=== PATIENT | male | born 1970 | race Caucasian/White ===

== ENCOUNTER 2018-07-24 13:18 | Emergency (ER) | payer SELFPAY ==
--- NOTE | 2018-07-24 13:49 | ERPHSYRPT ---
- History of Present Illness Time Seen by Provider: 07/24/18 13:41 Source: patient Exam Limitations: no limitations Patient Subjective Stated Complaint: pt here for pain to right ankle and knee since saturday evening since twisiting leg in pot hole, pt is a owner operator tanker truck driver and drove to [place] Triage Nursing Assessment: pt alert, arrived per [facility] leg pale, slightly blue in color, once leg was up on pillow pts lower leg became pink, has pedal pulse heard by doppler, right lower leg, with redness, swelling, swelling radiates to fight foot Physician History: 48-year-old white male complains of pain edema, erythema right lower extremity symptoms for 2 days. According to the patient he stepped into a hole 2 days ago twisting his right ankle he states he had right ankle pain he states he proceeded to drive to [place] and back he states he is having pain and edema to his right lower leg and ankle He has a moderate edema to his right foot right ankle He has erythema to the distal right leg and right foot. Area is not hot. Past medical history is negative Past surgical history dislocated left ankle in the past and fracture right leg in the past. Social history positive for occasional alcohol, positive occasional tobacco denies illicit drug use. Method of Injury: twisted (twisted right ankle 2 days ago, then drove to [place] and back) Occurred: days ago (2) Quality: aching Severity of Pain-Max: moderate Severity of Pain-Current: moderate Lower Extremities Pain: leg: right, foot: right, ankle: right Modifying Factors: Improves With: movement Associated Symptoms: unable to bear weight Allergies/Adverse Reactions: No Known Drug Allergies Allergy (Unverified 07/24/18 13:41) Hx Influenza Vaccination/Date Given: No Immunizations Up to Date: Yes - Review of Systems Constitutional: No Fever, No Chills Eyes: No Symptoms Ears, Nose, & Throat: No Symptoms Respiratory: No Cough, No Dyspnea Cardiac: No Chest Pain, No Edema, No Syncope Abdominal/Gastrointestinal: No Abdominal Pain, No Nausea, No Vomiting, No Diarrhea Genitourinary Symptoms: No Dysuria Musculoskeletal: Other (pain and edema, right lower leg foot and ankle) Skin: Other (Erythema to right foot and ankle) Neurological: No Dizziness, No Focal Weakness, No Sensory Changes Psychological: No Symptoms Endocrine: No Symptoms All Other Systems: Reviewed and Negative - Past Medical History Pertinent Past Medical History: No - Past Surgical History Past Surgical History: Yes Other Surgical History: left ankle - Social History Smoking Status: Current some day smoker Exposure to second hand smoke: Yes Drug Use: none Patient Lives Alone: No - Nursing Vital Signs Nursing Vital Signs: Initial Vital Signs Temperature 7.8 F 07/24/18 13:25 Pulse Rate 106 H 07/24/18 13:25 Respiratory Rate 18 07/24/18 13:25 Blood Pressure 124/92 07/24/18 13:25 O2 Sat by Pulse Oximetry 99 07/24/18 13:25 Pain Scale Pain Intensity 9 - Physical Exam General Appearance: moderate distress Eyes, Ears, Nose, Throat Exam: moist mucous membranes Neck Exam: non-tender, supple Cardiovascular/Respiratory Exam: chest non-tender, normal breath sounds, regular rate/rhythm, no respiratory distress Gastrointestinal/Abdominal Exam: non-tender, guarding Hips Exam: bilateral: non-tender, normal inspection, normal range of motion, no evidence of injury Legs Exam: right leg: other (left lower leg distally erythematous not hot edematous), left leg: non-tender, normal inspection, normal range of motion Knees Exam: bilateral knee: non-tender, normal inspection, normal range of motion, no evidence of injury Ankle Exam: right ankle: other (painwith movement and palpation right ankle right ankle edema), left ankle: non-tender, normal inspection, normal range of motion Foot Exam: right foot: other (Moderate edema right foot , tender with palpation proximal right foot), left foot: non-tender, normal inspection, normal range of motion, no evidence of injury Neuro/Tendon Exam: normal sensation, normal motor functions Mental Status Exam: alert, oriented x 3, cooperative Skin Exam: normal color, warm, dry SpO2 Interpretation: normal (99%) SpO2: 99 Oxygen Delivery: Room Air - Radiology Exams Right Foot X-ray Interpretation: Discussed w/ radiologist (x-ray right foot: Mild diffuse soft tissue swelling and tiny plantar heel spur. No other bony, articular, or soft tissue abnormalities.) Right Ankle X-ray Interpretation: Discussed w/ radiologist (x-ray right ankle: Soft tissue swelling and tiny plantar heel spur. No other bony, articular, or soft tissue abnormalities) Ordered Tests: Active Orders 24 hr Category Date Time Status Crutches STAT Care 07/24/18 15:08 Active IV Insertion STAT Care 07/24/18 13:39 Active ANKLE (3 VIEWS) Stat Exams 07/24/18 13:40 Completed FOOT (MINIMUM 3 VIEWS) Stat Exams 07/24/18 13:52 Completed BLOOD CULTURE Stat Lab 07/24/18 14:00 Received CBC W DIFF Stat Lab 07/24/18 14:20 Completed CMP Stat Lab 07/24/18 14:20 Completed D-DIMER QUANTITATION Stat Lab 07/24/18 14:20 Completed PROTIME WITH INR Stat Lab 07/24/18 14:20 Completed PTT Stat Lab 07/24/18 14:20 Completed Medication Summary Generic Name Dose Route Start Last Admin Trade Name Freq PRN Reason Stop Dose Admin Ampicillin Sodium/Sulbactam Sodium 3 gm in 100 mls @ 200 mls/hr 07/24/18 15: 08 Unasyn 3gm / Nacl 100ml IV 07/24/18 15:37 STAT STA Discontinued Medications Generic Name Dose Route Start Last Admin Trade Name Freq PRN Reason Stop Dose Admin Ketorolac Tromethamine 30 mg 07/24/18 13:53 07/24/18 13:59 Toradol 30 Mg Injection IV 07/24/18 13:54 30 mg STAT ONE Administration Ketorolac Tromethamine Confirm 07/24/18 13:59 Toradol 30 Mg Injection Administered 07/24/18 14:00 Dose 30 mg .ROUTE .STK-MED ONE Lab/Rad Data: Laboratory Result Diagrams 07/24/18 14:20 07/24/18 14:20 Laboratory Results 07/24/18 07/24/18 07/24/18 Range/Units 14:20 14:20 14:20 WBC 13.7 H (4.0-10.5) K/mm3 RBC 5.51 (4.1-5.6) M/mm3 Hgb 15.9 (12.5-18.0) gm/dl Hct 45.6 (42-50) % MCV 82.8 (78-100) fl MCH 28.9 (26-32) pg MCHC 34.9 (32-36) g/dl RDW 14.6 H (11.5-14.0) % Plt Count 168 (150-450) K/mm3 MPV 10.1 H (6-9.5) fl Gran % 82.0 H (36.0-66.0) % Eos # (Auto) 0 (0-0.5) Absolute Lymphs (auto) 1.51 (1.0-4.6) Absolute Monos (auto) 0.94 (0.0-1.3) Lymphocytes % 11.0 L (24.0-44.0) % Monocytes % 6.9 (0.0-12.0) % Eosinophils % 0.0 (0.00-5.0) % Basophils % 0.1 (0.0-0.4) % Absolute Granulocytes 11.23 H (1.4-6.9) Basophils # 0.02 (0-0.4) PT 16.8 H (8.83-12.87) SECONDS INR 1.44 (0.8-3.0) APTT 28.4 (24.1-36.1) SECONDS D-Dimer 293 (215-500) ng/mL Sodium 134 L (137-145) mmol/L Potassium 4.0 (3.5-5.1) mmol/L Chloride 99 (98-107) mmol/L Carbon Dioxide 23 (22-30) mmol/L Anion Gap 16.1 H (5-15) MEQ/L BUN 18 (9-20) mg/dL Creatinine 0.91 (0.66-1.25) mg/dL Estimated GFR > 60.0 ML/MIN Glucose 245 H (74-106) mg/dL Calcium 9.1 (8.4-10.2) mg/dL Total Bilirubin 1.70 H (0.2-1.3) mg/dL AST 20 (17-59) U/L ALT 26 (0-50) U/L Alkaline Phosphatase 64 (38-126) U/L Serum Total Protein 7.8 (6.3-8.2) g/dL Albumin 4.8 (3.5-5.0) g/dL - Progress Progress: improved Progress Note: 07/24/18 15:09 This is a 48-year-old white male arrives with complaint of pain and swelling in his right distal leg foot and ankle symptoms for 2 days patient states that he stepped in a hole twisted his right ankle 2 days ago he states he drove the [place] and back he arrives with marked edema and tenderness in the erythema to the right lower extremity. Patient did have palpable pulses dorsal pedal posterior tibial 2 over 4 this was comfortable by the patient's nurse with the Doppler. Patient did have tenderness with palpation to the right distal leg foot and ankle. X-ray of the right ankle and foot are remarkable for soft tissue swelling no fractures or subluxation Patient with a CBC showing white count 13.7 hemoglobin 15.9 hematocrit 45.6 platelets are 168 Patient's chemistry show a sodium of 134 potassium 4.0 chloride 99 bicarbonate 23 BUN 18 creatinine 0.91 glucose 245 Patient's d-dimer is within normal limits. Patient did have his right leg elevated while in the emergency room edema is much improved. He still has some tenderness after receiving Toradol 30 mg IV but pain is improved as well. He does have some erythema of the right foot which again is markedly improved The appearance of the right distal leg is erythematous but does not appear to be cellulitis. Right foot has mild erythema distally Will go ahead and cover the patient with Unasyn 3.[address] patient on Augmentin. Will go ahead and write for [place] for pain. Will avoid placing Beto wrap on patient's right lower extremity her ankle at this time the appearance of his right lower leg appears to possibly be skin changes secondary from having a tight dressing to the area. He does have good capillary refill to the toes and sensation is intact to the entire right foot. Will place patient on crutches. - Departure Time of Disposition: 15:14 Departure Disposition: Home Clinical Impression: Edema of right lower extremity Right ankle sprain Qualifiers: Encounter type: initial encounter Involved ligament of ankle: unspecified ligament Qualified Code(s): S93.401A - Sprain of unspecified ligament of right ankle, initial encounter Condition: Fair Critical Care Time: No Referrals: SARAH RO DO [Primary Care Provider] - Additional Instructions: Return home. Crutches no weight bearing right lower extremity. Elevate right lower extremity 24-48 hours. cold packs right lower extremity. Follow-up with your family doctor call tomorrow for an appointment. Augmentin as prescribed. Glasco as prescribed. Return for acute distress or for severe symptoms. Prescriptions: Amox Tr/Potass Clav. 500 mg [Augmentin 500-125 Tablet] 500 mg PO TID #30 tablet Hydrocodone/Acetaminophen [[place] 5-325 Tablet] 1 tab PO Q4-6HPRN PRN #15 tablet MDD 6 tablets PRN Reason: Pain
[2018-07-24] MEDS: TORAdol 30 mg Injection IV ONE (13:59)
[2018-07-24] MEDS ORDERED: TORAdol 30 mg Injection ONE (13:59)
--- NOTE | 2018-07-24 14:21 | XRAY ---
Indication: Pain, swelling, and erythema following injury 2 days ago. Comparison: None 3 nonweightbearing views of the right foot demonstrates mild diffuse soft tissue swelling and tiny plantar heel spur. No other bony, articular, or soft tissue abnormalities.
--- NOTE | 2018-07-24 14:24 | XRAY ---
Indication: Pain, swelling, and erythema following injury 2 days ago. Comparison: None 3 views of the right ankle demonstrates soft tissue swelling and tiny plantar heel spur. No other bony, articular, or soft tissue abnormalities.
[2018-07-24 14:27] LABS: BASOPHIL % 0.1 % (0.0-0.4); Basophil (Absolute #) 0.02 (0-0.4); Eosinophil (Absolute #) 0 (0-0.5); Granulocyte Absolute (ANC) 11.23 (1.4-6.9); Hematocrit 45.6 % (42-50); Hemoglobin 15.9 gm/dl (12.5-18.0); Lymphocyte (Absolute #) 1.51 (1.0-4.6); Mean Cell Volume 82.8 fl (78-100); Mean Corpuscular Hemoglobin 28.9 pg (26-32); Mean Corpuscular Hgb Concent. 34.9 g/dl (32-36); Mean Platelet Volume 10.1 fl (6-9.5); Monocyte (Absolute #) 0.94 (0.0-1.3); Monocytes % 6.9 % (0.0-12.0); Platelet Count 168 K/mm3 (150-450); Red Blood Count 5.51 M/mm3 (4.1-5.6); Red Cell Distribution Width 14.6 % (11.5-14.0); White Blood Count 13.7 K/mm3 (4.0-10.5)
[2018-07-24 14:44] LABS: ALBUMIN 4.8 g/dL (3.5-5.0); ALKALINE PHOSPHATASE 64 U/L (38-126); ANION GAP 16.1 MEQ/L (5-15); BLOOD UREA NITROGEN 18 mg/dL (9-20); CHLORIDE 99 mmol/L (98-107); Calcium 9.1 mg/dL (8.4-10.2); Carbon Dioxide 23 mmol/L (22-30); Creatinine 1 0.91 mg/dL (0.66-1.25); Glucose 245 mg/dL (74-106); SGOT/AST 20 U/L (17-59); SGPT/ALT 26 U/L (0-50); SODIUM 134 mmol/L (137-145); Total Protein 7.8 g/dL (6.3-8.2)
[2018-07-24 14:57] LABS: INR 1.44 (0.8-3.0)
[2018-07-24 15:00] LABS: PTT 28.4 SECONDS (24.1-36.1)
[2018-07-24] MEDS ORDERED: Unasyn 3GM / NaCl 100ML 3 GM/100 ML IVPB ONE (15:26)
[2018-07-24 15:47] VITALS: BP 105/62; PULSE 73; O2SAT 98
[2018-07-24] MEDS: Unasyn 3GM / NaCl 100ML 3 GM/100 ML IVPB IV STA (15:49)
== END 2018-07-24 16:07 | disposition home or self-care (01) ==
LOC: ED 13:18
DX: R60.0 Localized edema (principal); S93.401A Sprain of unspecified ligament of right ankle, initial encounter; X50.1XXA Overexertion from prolonged static or awkward postures, initial encounter; Y93.01 Activity, walking, marching and hiking; M25.571 Pain in right ankle and joints of right foot; M25.561 Pain in right knee; M79.661 Pain in right lower leg; M79.89 Other specified soft tissue disorders
CPT/HCPCS: 36000; 36415; 73610; 73630; 80053; 85025; 85379; 85610; 85730; 87040; 87077; 96365; 96374; 96375; 99284; J0295; J1885

== ENCOUNTER 2020-08-01 18:31 | Emergency (ER) | payer OTHER ==
[2020-08-01] MEDS ORDERED: XYLOCAINE 2% HCL 20 ML MDV ONE (18:49)
--- NOTE | 2020-08-01 19:07 | ERPHSYRPT ---
- History of Present Illness Source: patient Exam Limitations: no limitations Patient Subjective Stated Complaint: Pt states "I noticed like a marble under my skin on saturday and now it is much bigger and hurts allot." Triage Nursing Assessment: Pt presented alert and oriented X 3, skin pwd. Pt ambulates with a limp, able to speak in clear full sentences pt in no apparent respiratory distress. Pt has a 6 x3 abscess in right groin Physician History: 50 yo wm w posterior cervical abscess and R groin abscess x3days. Pt denies fever and h/o abscess. Timing/Duration: other (3days) Severity: moderate Location: other (Posterior cervical and R groin) Possible Causes: no cause identified Modifying Factors: Worsens With: antihistamine, calamine lotion, prednisone, scratching, topical steriods Associated Symptoms: denies symptoms Allergies/Adverse Reactions: No Known Drug Allergies Allergy (Verified 08/01/20 18:42) Home Medications: Metformin HCl 500 mg [Glucophage 500 MG] 500 mg PO TID 08/01/20 [History] Hx Tetanus, Diphtheria Vaccination/Date Given: No Hx Influenza Vaccination/Date Given: No Hx Pneumococcal Vaccination/Date Given: No Immunizations Up to Date: Yes Travel Risk - International Travel Have you traveled outside of the country in past 3 weeks: No - Coronavirus Screening Are you exhibiting any of the following symptoms?: No Close contact with a COVID-19 positive Pt in past 14-21 Days: No - Review of Systems Constitutional: No Symptoms Eyes: No Symptoms Ears, Nose, & Throat: No Symptoms Respiratory: No Symptoms Cardiac: No Symptoms Abdominal/Gastrointestinal: No Symptoms Genitourinary Symptoms: No Symptoms Musculoskeletal: No Symptoms Neurological: No Symptoms Psychological: No Symptoms Endocrine: No Symptoms Hematologic/Lymphatic: No Symptoms Immunological/Allergic: No Symptoms - Past Medical History Pertinent Past Medical History: Yes Neurological History: No Pertinent History ENT History: No Pertinent History Cardiac History: No Pertinent History Respiratory History: No Pertinent History Endocrine Medical History: Diabetes Type II Musculoskeletal History: No Pertinent History GI Medical History: No Pertinent History History: No Pertinent History Psycho-Social History: No Pertinent History Male Reproductive Disorders: No Pertinent History - Past Surgical History Past Surgical History: Yes Neuro Surgical History: No Pertinent History Cardiac: No Pertinent History Respiratory: No Pertinent History Gastrointestinal: No Pertinent History Genitourinary: No Pertinent History Musculoskeletal: No Pertinent History Male Surgical History: No Pertinent History Other Surgical History: left ankle - Social History Smoking Status: Current some day smoker How long have you smoked: years Exposure to second hand smoke: Yes Drug Use: none Patient Lives Alone: No Significant Family History: no pertinent family hx - Nursing Vital Signs Nursing Vital Signs: Initial Vital Signs Temperature 99.6 F 08/01/20 18:36 Pulse Rate 118 H 08/01/20 18:36 Respiratory Rate 20 08/01/20 18:36 Blood Pressure 155/86 08/01/20 18:36 O2 Sat by Pulse Oximetry 97 08/01/20 18:36 Pain Scale Pain Intensity 8 - Physical Exam General Appearance: no apparent distress Eye Exam: PERRL/EOMI, eyes nml inspection Ears, Nose, Throat Exam: normal ENT inspection, TMs normal, pharynx normal Neck Exam: other (Posterior cervical abscess) Respiratory Exam: normal breath sounds, lungs clear, airway intact Cardiovascular Exam: regular rate/rhythm, normal heart sounds, normal peripheral pulses Gastrointestinal/Abdomen Exam: soft, normal bowel sounds, No tenderness Male Genitalia Exam: other (R groin abscess) Back Exam: normal inspection Extremity Exam: normal inspection Neurologic Exam: alert, oriented x 3, cooperative Skin Exam: other (R posterior cervical abscess/R groin abscess) Lymphatic Exam: No adenopathy SpO2 Interpretation: normal SpO2: 97 O2 Delivery: Room Air Procedures - Incision and Drainage Site: Posterior cervical/R groin Anesthesia: 1% Lidocaine cc's of anesthesia: other (5ml infused into both abscesses) Blade Size: 11 I & D Procedure: betadine prep Results: large amount pus (Large amount of pus drained from each/both probed to break up loculations) - Course Nursing assessment & vital signs reviewed: Yes Ordered Tests: Medication Summary Discontinued Medications Generic Name Dose Route Start Last Admin Trade Name Freq PRN Reason Stop Dose Admin Hydrocodone Bitart/Acetaminophen 1 tab 08/01/20 19:32 08/01/20 19:33 [place] 10/325 Mg Tablet PO 08/01/20 19:33 1 tab STAT ONE Administration Hydrocodone Bitart/Acetaminophen Confirm 08/01/20 19:33 [place] 10/325 Mg Tablet Administered 08/01/20 19:34 Dose 1 tab .ROUTE .STK-MED ONE Lidocaine HCl Confirm 08/01/20 18:49 Xylocaine 2% Hcl 20 Ml Mdv Administered 08/01/20 18:50 Dose 1 ml .ROUTE .STK-MED ONE - Progress Progress: improved Progress Note: 08/01/20 19:06 Both abscesses incised w #11 scapel/Large amount of pus drained from both 08/01/20 21:38 08/01/20 21:40 Pt given Asstn73ep po x1 before discharge - Departure Departure Disposition: Home Clinical Impression: Abscess Condition: Stable Critical Care Time: No Instructions: Abscess Drainage, Percutaneous (DC) Additional Instructions: Wash areas twice a day with soap/water Start Doxycycline twice a day with soap/water Follow up with family MD in 1-2 days Return to ER for increased swelling/redness/pain/temperature greater than 100.5 Prescriptions: Hydrocodone/APAP 5-325 Tab^^^ [[place] 5-325 Tablet^^^] 1 each PO Q4HPRN PRN #6 tablet MDD 6 PRN Reason: Pain Doxycycline Monohydrate 100 mg PO BID 10 Days #20 tablet
[2020-08-01] MEDS ORDERED: Norco 10/325 MG Tablet PO ONE (19:32)
[2020-08-01] MEDS ORDERED: Norco 10/325 MG Tablet ONE (19:33)
[2020-08-01 19:40] VITALS: BP 119/95; PULSE 106
[2020-08-01 21:40] VITALS: O2SAT 97
== END 2020-08-01 19:35 | disposition home or self-care (01) ==
LOC: ED 18:31
DX: L02.11 Cutaneous abscess of neck (principal); L02.214 Cutaneous abscess of groin; E11.9 Type 2 diabetes mellitus without complications
CPT/HCPCS: 10060; 99283; A9270-GY

== ENCOUNTER 2022-07-03 20:26 | Observation (INO) | payer OTHER ==
[2022-07-03] MEDS ORDERED: Sodium Chloride 0.9% 1000 ML 1,000 ML IV SCH (22:15)
[2022-07-03 22:49] LABS: Absolute Neutrophil Ct (ANC) 7.95 x10^3/uL (1.4-6.9); Basophil (Absolute #) 0.01 x10^3/uL (0-0.4); Eosinophil (Absolute #) 0 x10^3/uL (0-0.5); Hematocrit 42.2 % (42-50); Hemoglobin 14.4 g/dL (12.5-18.0); Lymphocyte (Absolute #) 1.03 x10^3/uL (1.0-4.6); Lymphocytes % 10.3 % (24.0-44.0); Mean Cell Volume 84.6 fL (78-100); Mean Corpuscular Hemoglobin 28.9 pg (26-32); Mean Corpuscular Hgb Concent. 34.1 g/dL (32-36); Mean Platelet Volume 9.4 fL (7.5-11.0); Monocyte (Absolute #) 0.92 x10^3/uL (0.0-1.3); Monocytes % 9.2 % (0.0-12.0); Neutrophil % 79.7 % (36.0-66.0); Platelet Count 147 x10^3/uL (150-450); Red Blood Count 4.99 x10^6/uL (4.1-5.6); Red Cell Distribution Width 13.2 % (11.5-14.0)
[2022-07-03] MEDS ORDERED: Sodium Chloride 0.9% 1000 ML 1,000 ML ONE (22:56)
[2022-07-03 23:06] LABS: ALBUMIN 4.2 g/dL (3.5-5.0); ALKALINE PHOSPHATASE 63 U/L (38-126); ANION GAP 15.2 MEQ/L (5-15); BLOOD UREA NITROGEN 17 mg/dL (9-20); CHLORIDE 98 mmol/L (98-107); Calcium 8.6 mg/dL (8.4-10.2); Carbon Dioxide 24 mmol/L (22-30); Creatinine 1 0.83 mg/dL (0.66-1.25); EST GLOMERULAR FILTRATION RATE > 60.0 ML/MIN; Glucose 243 mg/dL (74-106); Potassium 3.9 mmol/L (3.5-5.1); SGOT/AST 23 U/L (17-59); SGPT/ALT 20 U/L (0-50); SODIUM 133 mmol/L (137-145); Total Protein 7.5 g/dL (6.3-8.2)
--- NOTE | 2022-07-03 23:41 | ERPHSYRPT ---
- History of Present Illness Time Seen by Provider: 07/03/22 20:45 Source: patient Exam Limitations: no limitations Patient Subjective Stated Complaint: pt arrived by ambulance with pain and redness in l leg.pt states that he heas had a rash on his l leg since saturday night and noticed that it kept getting worse and became more diffuse and painful. states he has pain in l leg and rates pain at 7/10, temp at this time in 99.8 Triage Nursing Assessment: pt is alert and oriented, able to answer questions correctly, states he is in pain 7/10 in left leg, this nurse noted diffuse redness and swelling in left leg from knee down to and including left foot. Physician History: Patient a 51-year-old male presents to emergency department for evaluation of pain to his left leg. Patient believes he has a soft tissue infection. Symptoms started 3 days ago with a slight rash. Patient has been scratching and states the area has become more tender and red. No fever. Symptoms are progressive. Symptoms are moderate in intensity. Pain worse with palpation. Patient denies trauma. Additionally patient states that he has not eaten very much as he has not felt well. Patient denies a history of the same. He voices no other complaints or concerns at this time. Portions of this note were created with voice recognition technology. There may be grammatical, spelling, punctuation or sound alike errors Timing/Duration: day(s) (3 days) Severity: moderate Modifying Factors: Improves With: nothing Associated Symptoms: denies symptoms Allergies/Adverse Reactions: No Known Drug Allergies Allergy (Verified 08/01/20 18:42) Home Medications: Metformin HCl 500 mg [Glucophage 500 MG] 500 mg PO BID 08/01/20 [History] Hx Tetanus, Diphtheria Vaccination/Date Given: No Hx Influenza Vaccination/Date Given: No Hx Pneumococcal Vaccination/Date Given: No Travel Risk - International Travel Have you traveled outside of the country in past 3 weeks: No - Coronavirus Screening Are you exhibiting any of the following symptoms?: No Close contact with a COVID-19 positive Pt in past 14-21 Days: No - Vaccine Status Have you recieved a Covid-19 vaccination: No - Review of Systems Constitutional: No Symptoms, No Fever, No Chills Eyes: No Symptoms Ears, Nose, & Throat: No Symptoms Respiratory: No Symptoms, No Cough, No Dyspnea Cardiac: No Symptoms, No Chest Pain, No Edema, No Syncope Abdominal/Gastrointestinal: No Symptoms, No Abdominal Pain, No Nausea, No Vomiting, No Diarrhea Genitourinary Symptoms: No Symptoms, No Dysuria Musculoskeletal: No Symptoms, No Back Pain, No Neck Pain Skin: No Symptoms, No Rash Neurological: No Symptoms, No Dizziness, No Focal Weakness, No Sensory Changes Psychological: No Symptoms Endocrine: No Symptoms Hematologic/Lymphatic: No Symptoms Immunological/Allergic: No Symptoms All Other Systems: Reviewed and Negative - Past Medical History Pertinent Past Medical History: Yes Neurological History: No Pertinent History ENT History: No Pertinent History Cardiac History: No Pertinent History Respiratory History: No Pertinent History Endocrine Medical History: Diabetes Type II Musculoskeletal History: No Pertinent History GI Medical History: No Pertinent History History: No Pertinent History Psycho-Social History: No Pertinent History Male Reproductive Disorders: No Pertinent History - Past Surgical History Past Surgical History: Yes Neuro Surgical History: No Pertinent History Cardiac: No Pertinent History Respiratory: No Pertinent History Gastrointestinal: No Pertinent History Genitourinary: No Pertinent History Musculoskeletal: No Pertinent History Male Surgical History: No Pertinent History Other Surgical History: left ankle - Social History Smoking Status: Current some day smoker How long have you smoked: years Exposure to second hand smoke: Yes Drug Use: none Patient Lives Alone: No Significant Family History: no pertinent family hx - Nursing Vital Signs Nursing Vital Signs: Initial Vital Signs Temperature 99.8 F 07/03/22 20:34 Pulse Rate 105 H 07/03/22 20:34 Respiratory Rate 18 07/03/22 20:34 Blood Pressure 128/81 07/03/22 20:34 O2 Sat by Pulse Oximetry 97 07/03/22 20:34 Pain Scale Pain Intensity 3 - Physical Exam General Appearance: no apparent distress, alert Eye Exam: PERRL/EOMI, eyes nml inspection Ears, Nose, Throat Exam: normal ENT inspection, TMs normal, pharynx normal, moist mucous membranes Neck Exam: normal inspection, non-tender, supple, full range of motion Respiratory Exam: normal breath sounds, lungs clear, airway intact, No respiratory distress Cardiovascular Exam: regular rate/rhythm, normal heart sounds, normal peripheral pulses Gastrointestinal/Abdomen Exam: soft, normal bowel sounds, No tenderness, No mass Back Exam: normal inspection, normal range of motion, No CVA tenderness, No vertebral tenderness Extremity Exam: normal inspection, normal range of motion, pelvis stable, calf tenderness, inflammation, limited range of motion, tenderness, other (Left lower extremity cellulitis. Positive Homans' sign left lower extremity. Extremity neurovascular intact distally. Compartments are soft. Cap refill less than 2 seconds.) Neurologic Exam: alert, oriented x 3, cooperative, normal mood/affect, sensation nml, No motor deficits Skin Exam: normal color, warm, dry, No rash Lymphatic Exam: No adenopathy SpO2 Interpretation: normal SpO2: 97 O2 Delivery: Room Air - Course Nursing assessment & vital signs reviewed: Yes - Radiology Ultrasound Exam Venous Lower Extremity Ultrasound: discussed w/radiologist (Radiologist. No DVT. Scott's cyst versus popliteal reactive lymphadenopathy.) Ordered Tests: Active Orders 24 hr Category Date Time Status Up With Assistance ROUTINE Activity 07/04/22 01:35 Active Assistant Winemaker STAT Care 07/03/22 22:07 Completed Code Status Order ROUTINE Care 07/04/22 01:35 Active Code Status Order ROUTINE Care 07/04/22 01:35 Completed IV Care Q6H Care 07/04/22 01:35 Active IV Care Q6H Care 07/04/22 01:35 Completed IV Insertion STAT Care 07/03/22 22:07 Completed Neuro Checks Q4H Care 07/04/22 01:[address] in Observation ROUTINE Care 07/04/22 01:35 Active Pulse Oximetry (ED) STAT Care 07/03/22 22:07 Completed Telemetry q6h Care 07/04/22 01:35 Active Heart-Healthy Diet Diet 07/04/22 Breakfast Active VENOUS UNILAT/LIMITED EXTREMIT [US] Stat Exams 07/03/22 22:33 Taken BLOOD CULTURE Stat Lab 07/03/22 22:35 Received CBC W DIFF AM.LAB Lab 07/04/22 04:45 Received CBC W DIFF Stat Lab 07/03/22 22:30 Completed CMP AM.LAB Lab 07/04/22 04:45 Received CMP Stat Lab 07/03/22 22:30 Completed Transfer Order Routine Transfer 07/04/22 Completed Medication Summary Generic Name Dose Route Start Last Admin Trade Name Freq PRN Reason Stop Dose Admin Vancomycin HCl 1 gm in 200 mls @ 125 mls/hr 07/04/22 01:35 07/04/22 02:45 Vancomycin 1 Gram/200 Ml Bag IV 08/03/22 01:34 Not Given Q24H AZUL Piperacillin Sod/Tazobactam 100 mls @ 200 mls/hr 07/04/22 06:00 Sod 3.375 gm/ Sodium Chloride IV 07/07/22 05:59 Q6HT AZUL Morphine Sulfate 2 mg 07/04/22 01:35 07/04/22 01:44 Morphine Sulfate 2 Mg/Ml Inj IV 07/09/22 01:34 2 mg Q4H PRN PRN Administration PAIN Morphine Sulfate 4 mg 07/04/22 02:55 07/04/22 03:01 Morphine Sulfate 4 Mg/Ml Injection IV 07/04/22 02:56 4 mg STAT ONE Administration Ondansetron HCl 4 mg 07/04/22 01:35 Ondansetron Hcl 4 Mg/2 Ml Vial IV 08/03/22 01:34 Q6H PRN PRN NAUSEA/VOMITING Discontinued Medications Generic Name Dose Route Start Last Admin Trade Name Freq PRN Reason Stop Dose Admin Sodium Chloride 1,000 mls @ 100 mls/hr 07/03/22 22:15 07/03/22 22:57 Sodium Chloride 0.9% 1000 Ml IV 08/02/22 22:14 100 mls/hr .Q10H AZUL Administration Piperacillin Sod/Tazobactam 100 mls @ 200 mls/hr 07/03/22 23:48 07/03/22 23:59 Sod 3.375 gm/ Sodium Chloride IV 07/04/22 00:17 200 mls/hr STAT ONE Administration Vancomycin HCl 1 gm in 200 mls @ 125 mls/hr 07/03/22 23:49 07/04/22 00:27 Vancomycin 1 Gram/200 Ml Bag IV 07/04/22 01:24 125 mls/hr STAT ONE 125 mls/hr Administration Sodium Chloride Confirm 07/03/22 23:52 Sodium Chloride 100ml Mini-Bag Plus Administered 07/03/22 23:53 Dose 100 mls @ ud IV .STK-MED ONE Vancomycin HCl Confirm 07/04/22 00:02 Vancomycin 1 Gram/200 Ml Bag Administered 07/04/22 00:03 Dose 1 gm in 200 mls @ ud IV .STK-MED ONE Sodium Chloride Confirm 07/03/22 22:56 Sodium Chloride 0.9% 1000 Ml Administered 07/03/22 22:57 Dose 1,000 mls @ ud .ROUTE .STK-MED ONE Morphine Sulfate Confirm 07/04/22 00:02 Morphine Sulfate 2 Mg/Ml Inj Administered 07/04/22 00:03 Dose 2 mg .ROUTE .STK-MED ONE Morphine Sulfate 2 mg 07/04/22 00:20 07/04/22 00:26 Morphine Sulfate 2 Mg/Ml Inj IV 07/04/22 00:21 2 mg STAT ONE Administration Piperacillin Sod/Tazobactam Sod Confirm 07/03/22 23:52 Piperacillin/Tazobactam Sodium 3.375 Gm Vial Administered 07/03/22 23:53 Dose 3.375 gm IV .STK-MED ONE Lab/Rad Data: Laboratory Result Diagrams 07/03/22 22:30 07/03/22 22:30 Laboratory Results 07/03/22 07/03/22 07/03/22 Range/Units 23:50 22:30 22:30 WBC 10.0 (4.0-10.5) x10^3/uL RBC 4.99 (4.1-5.6) x10^6/uL Hgb 14.4 (12.5-18.0) g/dL Hct 42.2 (42-50) % MCV 84.6 (78-100) fL MCH 28.9 (26-32) pg MCHC 34.1 (32-36) g/dL RDW 13.2 (11.5-14.0) % Plt Count 147 L (150-450) x10^3/uL MPV 9.4 (7.5-11.0) fL Gran % 79.7 H (36.0-66.0) % Immature Gran % (Auto) 0.7 H (0.00-0.4) % Nucleat RBC Rel Count 0.0 (0.00-0.1) % Eos # (Auto) 0 (0-0.5) x10^3/uL Immature Gran # (Auto) 0.07 H (0.00-0.03) x10^3u/L Absolute Lymphs (auto) 1.03 (1.0-4.6) x10^3/uL Absolute Monos (auto) 0.92 (0.0-1.3) x10^3/uL Absolute Nucleated RBC 0.00 (0.00-0.01) x10^3u/L Lymphocytes % 10.3 L (24.0-44.0) % Monocytes % 9.2 (0.0-12.0) % Eosinophils % 0.0 (0.00-5.0) % Basophils % 0.1 (0.0-0.4) % Absolute Granulocytes 7.95 H (1.4-6.9) x10^3/uL Basophils # 0.01 (0-0.4) x10^3/uL Sodium 133 L (137-145) mmol/L Potassium 3.9 (3.5-5.1) mmol/L Chloride 98 (98-107) mmol/L Carbon Dioxide 24 (22-30) mmol/L Anion Gap 15.2 H (5-15) MEQ/L BUN 17 (9-20) mg/dL Creatinine 0.83 (0.66-1.25) mg/dL Estimated GFR > 60.0 ML/MIN Glucose 243 H (74-106) mg/dL Calcium 8.6 (8.4-10.2) mg/dL Total Bilirubin 1.60 H (0.2-1.3) mg/dL AST 23 (17-59) U/L ALT 20 (0-50) U/L Alkaline Phosphatase 63 (38-126) U/L Serum Total Protein 7.5 (6.3-8.2) g/dL Albumin 4.2 (3.5-5.0) g/dL Influenza Type A Ag NEGATIVE (NEGATIVE) Influenza Type B Ag NEGATIVE (NEGATIVE) RSV (PCR) NEGATIVE (Negative) SARS-CoV-2 (PCR) NEGATIVE (NEGATIVE) - Progress Progress: improved Progress Note: Patient reassessed. Symptoms improved. Ultrasound negative for DVT. Ultrasound suggestive of reactive popliteal lymphadenopathy. Extremity neurovascular intact distally. PT DP pulse palpable. No leukocytosis. No fever. There is an obvious cellulitis of the involved extremity. Blood cultures obtained antibiotics infused. Case discussed with Dr. Hopkins accepts admission to observation. Plan of care discussed with patient. He agrees to admission at [facility] for further evaluation and treatment. Portions of this note were created with voice recognition technology. There may be grammatical, spelling, punctuation or sound alike errors 07/04/22 00:[address]Aubree: Megan Will see patient in: hospital (observation) Counseled pt/family regarding: lab results, diagnosis, rad results - Departure Departure Disposition: Observation Clinical Impression: Cellulitis Condition: Stable Critical Care Time: No
[2022-07-03] MEDS ORDERED: PIPERACILLIN/TAZOBACTAM 3.375 GM in Sodium Chloride 100ML MINI-BAG PLUS 100 ML IV ONE (23:48)
[2022-07-03] MEDS ORDERED: VANCOMYCIN 1 GRAM/200 ML BAG 1 GM/200 ML PIGGYBACK IV ONE (23:49)
[2022-07-03] MEDS ORDERED: Sodium Chloride 100ML MINI-BAG PLUS 100 ML IV ONE (23:52)
[2022-07-03] MEDS ORDERED: PIPERACILLIN/TAZOBACTAM IV ONE (23:52)
[2022-07-04] MEDS ORDERED: VANCOMYCIN 1 GRAM/200 ML BAG 1 GM/200 ML PIGGYBACK IV ONE (00:02)
[2022-07-04] MEDS ORDERED: MORPHINE SULFATE 2 MG INJ ONE (00:02)
[2022-07-04] MEDS ORDERED: MORPHINE SULFATE 2 MG INJ IV ONE (00:20)
[2022-07-04 00:33] LABS: INFLUENZA A NEGATIVE (NEGATIVE); INFLUENZA B NEGATIVE (NEGATIVE); RESPIRATORY SYNCTIAL VIRUS NEGATIVE (Negative); SARS-CoV-2 Xpert Express NEGATIVE (NEGATIVE)
[2022-07-04] MEDS ORDERED: VANCOMYCIN 1 GRAM/200 ML BAG 1 GM/200 ML PIGGYBACK IV SCH (01:35)
[2022-07-04] MEDS ORDERED: Zofran 4 MG/2 ML VIAL IV PRN (01:35)
[2022-07-04] MEDS: MORPHINE SULFATE 2 MG INJ IV PRN ×2 (01:44→23:17)
[2022-07-04] MEDS ORDERED: MORPHINE SULFATE 4 MG INJ IV ONE (02:55)
[2022-07-04 05:14] LABS: Absolute Neutrophil Ct (ANC) 7.28 x10^3/uL (1.4-6.9); Basophil (Absolute #) 0.01 x10^3/uL (0-0.4); Eosinophil % 0.2 % (0.00-5.0); Eosinophil (Absolute #) 0.02 x10^3/uL (0-0.5); Hematocrit 39.7 % (42-50); Hemoglobin 13.5 g/dL (12.5-18.0); Lymphocyte (Absolute #) 1.13 x10^3/uL (1.0-4.6); Lymphocytes % 11.9 % (24.0-44.0); Mean Corpuscular Hemoglobin 28.9 pg (26-32); Mean Platelet Volume 9.4 fL (7.5-11.0); Monocyte (Absolute #) 0.98 x10^3/uL (0.0-1.3); Monocytes % 10.3 % (0.0-12.0); Platelet Count 144 x10^3/uL (150-450); Red Blood Count 4.67 x10^6/uL (4.1-5.6); Red Cell Distribution Width 13.3 % (11.5-14.0); White Blood Count 9.5 x10^3/uL (4.0-10.5)
[2022-07-04 05:39] LABS: ALBUMIN 3.7 g/dL (3.5-5.0); ALKALINE PHOSPHATASE 59 U/L (38-126); ANION GAP 13.7 MEQ/L (5-15); BLOOD UREA NITROGEN 19 mg/dL (9-20); CHLORIDE 98 mmol/L (98-107); Calcium 8.1 mg/dL (8.4-10.2); Carbon Dioxide 24 mmol/L (22-30); Creatinine 1 0.93 mg/dL (0.66-1.25); EST GLOMERULAR FILTRATION RATE > 60.0 ML/MIN; Glucose 219 mg/dL (74-106); SGOT/AST 23 U/L (17-59); SGPT/ALT 21 U/L (0-50); SODIUM 131 mmol/L (137-145); Total Protein 6.7 g/dL (6.3-8.2)
[2022-07-04] MEDS ORDERED: PIPERACILLIN/TAZOBACTAM IV ONE (06:01)
[2022-07-04] MEDS ORDERED: Sodium Chloride 100ML MINI-BAG PLUS 100 ML IV ONE (06:02)
[2022-07-04] MEDS: PIPERACILLIN/TAZOBACTAM 3.375 GM in Sodium Chloride 100ML MINI-BAG PLUS 100 ML IV SCH ×3 (06:05→18:17)
[2022-07-04] MEDS: VANCOMYCIN 2 GRAM/400 ML BAG 2 GM/400 ML PIGGYBACK IV SCH ×2 (08:42→20:59)
--- NOTE | 2022-07-04 09:37 | XRAY ---
Indication: Pain. Necrotizing fasciitis. Multiple contiguous axial images obtained through the left lower leg to include the knee/ankle joint prior to and following 125 cc Isovue 370 contrast. Sagittal and coronal reformatted images obtained. Comparison: None Lateral malleolus fixation plate/transverse screws produces beam artifact. 2 transverse screws are fractured. No acute fracture, suspicious bony lesions, or osseous destructive process. Knee and ankle joints intact without abnormal effusion. Visualized soft tissues are negative for focal solid/cystic soft tissue mass, fluid collection, or subcutaneous emphysema. Mild distal lower leg cutaneous/subcutaneous induration favoring cellulitis. Major arteries demonstrates mild scattered arteriosclerotic calcifications of the tibioperoneal trunk, posterior tibial, and peroneal arteries. No critical stenosis or obstruction. Impression: 1. Beam artifact from lateral malleolus fixation plate/screws. 2 transverse screws are fractured. 2. Lower leg cellulitis. Negative for underlying abscess or subcutaneous emphysema. 3. Incidental mild lower leg arteriosclerotic disease. Comment: Preliminary interpretation made by [facility]. No critical discrepancy.
--- NOTE | 2022-07-04 09:37 | XRAY ---
Indication: Left leg erythema and tenderness. Two-dimensional sonogram and color Doppler imaging of the major venous vessels of the left leg performed. Comparison: None No thrombus seen in the examined deep venous vessels of the left leg including greater saphenous vein. Veins demonstrate normal compressibility. Venous waveforms are normal. Posterior knee demonstrates 1.6 x 0.8 cm lymph node presumed reactive. Impression: 1. Left leg negative for DVT. 2. Incidental small posterior knee lymph node. Comment: Preliminary report was given.
[2022-07-04] MEDS: Sodium Chloride 0.9% 1000 ML 1,000 ML IV SCH (13:58)
[2022-07-04] MEDS ORDERED: HUMALOG SQ PRN (14:24)
[2022-07-04 15:51] LABS: Appearance CLEAR (CLEAR); Bilirubin NEGATIVE (NEGATIVE); Glucose 500 mg/dL (NEGATIVE); Ketones MODERATE-40 (NEGATIVE)
[2022-07-04 15:52] LABS: Dipstick done @ ? MAIN LAB; Nitrite NEGATIVE (NEGATIVE); Protein,Urine Dip TRACE (Negative); RBC NEGATIVE Ery/ul (0-5); Specific Gravity 1.015 (1.005-1.025); Urobilinogen 0.2 mg/dL (0-1)
[2022-07-04 15:54] LABS: Mucus SLIGHT /HPF (NEGATIVE)
[2022-07-04 15:55] LABS: Urine Cultured Indicated? NO
[2022-07-05] MEDS: PIPERACILLIN/TAZOBACTAM 3.375 GM in Sodium Chloride 100ML MINI-BAG PLUS 100 ML IV SCH ×3 (00:54→11:09)
[2022-07-05] MEDS: Sodium Chloride 0.9% 1000 ML 1,000 ML IV SCH (04:03)
[2022-07-05 04:59] LABS: Hematocrit 38.9 % (42-50); Mean Cell Volume 84.9 fL (78-100); Mean Corpuscular Hemoglobin 28.4 pg (26-32); Mean Corpuscular Hgb Concent. 33.4 g/dL (32-36); Mean Platelet Volume 9.3 fL (7.5-11.0); Platelet Count 153 x10^3/uL (150-450); Red Blood Count 4.58 x10^6/uL (4.1-5.6); Red Cell Distribution Width 13.2 % (11.5-14.0); White Blood Count 8.6 x10^3/uL (4.0-10.5)
[2022-07-05 05:36] LABS: ANION GAP 12.2 MEQ/L (5-15); BLOOD UREA NITROGEN 13 mg/dL (9-20); CHLORIDE 102 mmol/L (98-107); Calcium 8.2 mg/dL (8.4-10.2); Carbon Dioxide 24 mmol/L (22-30); Creatinine 1 0.71 mg/dL (0.66-1.25); EST GLOMERULAR FILTRATION RATE > 60.0 ML/MIN; Glucose 152 mg/dL (74-106); Potassium 3.8 mmol/L (3.5-5.1); SODIUM 134 mmol/L (137-145)
[2022-07-05] MEDS: VANCOMYCIN 2 GRAM/400 ML BAG 2 GM/400 ML PIGGYBACK IV SCH (07:43)
[2022-07-05] MEDS ORDERED: Amaryl 2 MG PO SCH (08:00)
[2022-07-05] MEDS ORDERED: Glucophage 500 MG PO SCH (09:00)
[2022-07-05 12:00] VITALS: BP 126/78; PULSE 79; O2SAT 97
[2022-07-05 13:39] LABS: ANION GAP 13.2 MEQ/L (5-15); BLOOD UREA NITROGEN 14 mg/dL (9-20); CHLORIDE 100 mmol/L (98-107); Calcium 8.6 mg/dL (8.4-10.2); Carbon Dioxide 27 mmol/L (22-30); Creatinine 1 0.74 mg/dL (0.66-1.25); EST GLOMERULAR FILTRATION RATE > 60.0 ML/MIN; Glucose 175 mg/dL (74-106); Potassium 4.3 mmol/L (3.5-5.1); SODIUM 136 mmol/L (137-145)
[2022-07-06] MEDS ORDERED: TROUGH DRUG LEVELS IJ ONE (09:30)
== END 2022-07-05 12:18 | disposition home or self-care (01) ==
LOC: ED 20:26 → MED SURG 07-04 01:32
PROVIDERS: ADMIT Family Medicine; ATTEND Family Medicine
DX: L03.116 Cellulitis of left lower limb (principal); E11.9 Type 2 diabetes mellitus without complications; Z72.0 Tobacco use; Z79.899 Other long term (current) drug therapy; Z20.828 Contact with and (suspected) exposure to other viral communicable diseases
CPT/HCPCS: 0241U; 36000; 36415; 73702; 80048; 80053; 81015; 82947; 83605; 85025; 85027; 87040; 93041; 93268; 93971; 94760; 96365; 96374; 96375; 99285; G0378; J2270; A9270-GY; J3370

== ENCOUNTER 2023-01-14 06:27 | Observation (INO) | payer OTHER ==
--- NOTE | 2023-01-14 07:24 | ERPHSYRPT ---
- History of Present Illness Source: patient Exam Limitations: no limitations Patient Subjective Stated Complaint: Right lower leg pain, possible infection, rash Triage Nursing Assessment: pt to ED c/o r lower leg pain that he noticed yesterday when going to work. pt reports hx diabetes and pain in lower R leg is 8/10 now. noted redness and rash to entire R lower leg. pt states he has felt feverish but was not able to check temp at home. afebrile on arrival. also repor ts some nausea and vomiting r/t pain in leg. pt reports he was here about 6 months ago for these same sx and was dx with cellulitis. Physician History: 52 yo wm w h/o cellulitis presents w RLE erythema [id number]. Pt states that he has had fever/chills/N/V. He is a diabetic. Pain is mild. Timing/Duration: other (6 hours) Quality: burning Severity: moderate Location: extremities Possible Causes: other (Cellulitis) Associated Symptoms: fever, rash Allergies/Adverse Reactions: No Known Drug Allergies Allergy (Verified 01/14/23 06:39) Home Medications: Metformin HCl 500 mg [Glucophage 500 MG] 500 mg PO BID 08/01/20 [History] Semaglutide [Ozempic] 0.25 mg SQ WEEKLY 01/14/23 [History] Hx Tetanus, Diphtheria Vaccination/Date Given: No Hx Influenza Vaccination/Date Given: No Hx Pneumococcal Vaccination/Date Given: No Immunizations Up to Date: No Travel Risk - International Travel Have you traveled outside of the country in past 3 weeks: No - Coronavirus Screening Are you exhibiting any of the following symptoms?: Yes Symptoms: Fever, Vomiting/Diarrhea Close contact with a COVID-19 positive Pt in past 14-21 Days: No - Vaccine Status Have you recieved a Covid-19 vaccination: No - Review of Systems Constitutional: No Symptoms, Fever, Chills Eyes: No Symptoms Ears, Nose, & Throat: No Symptoms Respiratory: No Symptoms Cardiac: No Symptoms Abdominal/Gastrointestinal: No Symptoms, Nausea, Vomiting Genitourinary Symptoms: No Symptoms Skin: No Symptoms, Cellulitis Neurological: No Symptoms Psychological: No Symptoms Endocrine: No Symptoms Hematologic/Lymphatic: No Symptoms Immunological/Allergic: No Symptoms - Past Medical History Pertinent Past Medical History: Yes Neurological History: No Pertinent History ENT History: No Pertinent History Cardiac History: No Pertinent History Respiratory History: No Pertinent History Endocrine Medical History: Diabetes Type II Musculoskeletal History: No Pertinent History GI Medical History: No Pertinent History History: No Pertinent History Psycho-Social History: No Pertinent History Male Reproductive Disorders: No Pertinent History - Past Surgical History Past Surgical History: Yes Neuro Surgical History: No Pertinent History Cardiac: No Pertinent History Respiratory: No Pertinent History Gastrointestinal: No Pertinent History Genitourinary: No Pertinent History Musculoskeletal: Orthopedic Surgery Male Surgical History: No Pertinent History Other Surgical History: left ankle - Social History Smoking Status: Former smoker How long have you smoked: years Exposure to second hand smoke: No Drug Use: none Patient Lives Alone: No Significant Family History: no pertinent family hx - Nursing Vital Signs Nursing Vital Signs: Initial Vital Signs Temperature 97.2 F 01/14/23 06:31 Pulse Rate 110 H 01/14/23 06:31 Respiratory Rate 18 01/14/23 06:31 Blood Pressure 136/87 01/14/23 06:31 O2 Sat by Pulse Oximetry 97 01/14/23 06:31 Pain Scale Pain Intensity 5 Tachy - Physical Exam General Appearance: no apparent distress Eye Exam: PERRL/EOMI, eyes nml inspection Ears, Nose, Throat Exam: normal ENT inspection, TMs normal, pharynx normal, moist mucous membranes Neck Exam: normal inspection, non-tender, supple, full range of motion, No meningismus, No mass, No Brudzinski, No Kernig's Respiratory Exam: crackles/rales (Faint rales L base), No respiratory distress Cardiovascular Exam: tachycardia, capillary refill <2 sec, No murmur Gastrointestinal/Abdomen Exam: soft, normal bowel sounds, No tenderness Back Exam: normal inspection, normal range of motion, No CVA tenderness, No vertebral tenderness Extremity Exam: other (RLE pre-tibial erythema compatable w cellulitis) Neurologic Exam: alert, oriented x 3, cooperative, telecine operator II-XII nml as tested, normal mood/affect, nml cerebellar function, nml station & gait, sensation nml, No motor deficits, No sensory deficit Skin Exam: other (Cellulitis R pre-tibial area) Lymphatic Exam: No adenopathy SpO2 Interpretation: normal SpO2: 97 O2 Delivery: Room Air - Course Nursing assessment & vital signs reviewed: Yes Ordered Tests: Active Orders 24 hr Category Date Time Status IV Insertion STAT Care 01/14/23 07:17 Completed Consistent Carbohydrate Diet 2000 Calorie Diet 01/14/23 Lunch Active BLOOD CULTURE Stat Lab 01/14/23 07:31 Received CBC W DIFF AM.LAB Lab 01/15/23 04:00 Ordered CBC W DIFF Stat Lab 01/14/23 07:17 Completed CMP AM.LAB Lab 01/15/23 04:00 Ordered CMP Stat Lab 01/14/23 07:31 Completed Lactic Acid Stat Lab 01/14/23 07:17 Completed Lactic Acid Stat Lab 01/14/23 09:39 Completed Transfer Order Routine Transfer 01/14/23 Completed Medication Summary Generic Name Dose Route Start Last Admin Trade Name Freq PRN Reason Stop Dose Admin Hydromorphone HCl 0.5 mg 01/14/23 08:42 01/14/23 09:35 Hydromorphone 1 Mg/1ml Inj 1 Mg/Ml Syringe IV 01/19/23 08:41 0.5 mg Q4H PRN PRN Administration PAIN Sodium Chloride 1,000 mls @ 100 mls/hr 01/14/23 08:45 01/14/23 09:42 Sodium Chloride 0.9% 1000 Ml IV 02/13/23 08:44 100 mls/hr .Q10H AZUL Administration Vancomycin HCl 1.5 gm in 300 mls @ 150 mls/hr 01/14/23 14:00 Vancomycin 1.5 Gram/300 Ml Bag IV 02/13/23 13:59 Q8HT AZUL Insulin Human Lispro 0 unit 01/14/23 08:42 01/14/23 11:47 Insulin Lispro 1 Unit SQ 02/13/23 08:41 2 unit UD PRN Administration HYPERGLYCEMIA Metformin HCl 500 mg 01/14/23 17:00 Metformin Hcl 500 Mg Tablet PO 02/13/23 16:59 BIDWM AZUL Miscellaneous Information 1 each 01/14/23 12:30 Medication Intervention 1 Each Each 02/13/23 12:29 .RN TO CHECK AZUL Ondansetron HCl 4 mg 01/14/23 08:42 Ondansetron Hcl 4 Mg/2 Ml Vial IV 02/13/23 08:41 Q6H PRN PRN NAUSEA/VOMITING Discontinued Medications Generic Name Dose Route Start Last Admin Trade Name Freq PRN Reason Stop Dose Admin Vancomycin HCl 1 gm in 200 mls @ 125 mls/hr 01/14/23 07:30 01/14/23 09:25 Vancomycin 1 Gram/200 Ml Bag IV 02/13/23 07:29 Infused Q24H AZUL Infusion Sodium Chloride 1,000 mls @ 999 mls/hr 01/14/23 07:52 01/14/23 10:03 Sodium Chloride 0.9% 1000 Ml IV 01/14/23 08:52 Infused .Q1H1M STA Infusion Sodium Chloride Confirm 01/14/23 08:28 Sodium Chloride 0.9% 1000 Ml Administered 01/14/23 08:29 Dose 1,000 mls @ ud .ROUTE .STK-MED ONE Vancomycin HCl 1 gm in 200 mls @ 125 mls/hr 01/14/23 08:45 01/14/23 09:25 Vancomycin 1 Gram/200 Ml Bag IV 02/13/23 08:44 Not Given Q12H AZUL Vancomycin HCl Confirm 01/14/23 07:38 Vancomycin 1 Gram/200 Ml Bag Administered 01/14/23 07:39 Dose 1 gm in 200 mls @ ud IV .STK-MED ONE Lab/Rad Data: Laboratory Result Diagrams 01/14/23 07:17 01/14/23 07:31 Laboratory Results 01/14/23 01/14/23 01/14/23 Range/Units 09:39 09:06 07:31 WBC (4.0-10.5) x10^3/uL RBC (4.1-5.6) x10^6/uL Hgb (12.5-18.0) g/dL Hct (42-50) % MCV (78-100) fL MCH (26-32) pg MCHC (32-36) g/dL RDW (11.5-14.0) % Plt Count (150-450) x10^3/uL MPV (7.5-11.0) fL Gran % (36.0-66.0) % Immature Gran % (Auto) (0.00-0.4) % Nucleat RBC Rel Count (0.00-0.1) % Eos # (Auto) (0-0.5) x10^3/uL Immature Gran # (Auto) (0.00-0.03) x10^3u/L Absolute Lymphs (auto) (1.0-4.6) x10^3/uL Absolute Monos (auto) (0.0-1.3) x10^3/uL Absolute Nucleated RBC (0.00-0.01) x10^3u/L Lymphocytes % (24.0-44.0) % Monocytes % (0.0-12.0) % Eosinophils % (0.00-5.0) % Basophils % (0.0-0.4) % Absolute Granulocytes (1.4-6.9) x10^3/uL Basophils # (0-0.4) x10^3/uL Sodium 134 L (137-145) mmol/L Potassium 3.9 (3.5-5.1) mmol/L Chloride 99 (98-107) mmol/L Carbon Dioxide 25 (22-30) mmol/L Anion Gap 14.4 (5-15) MEQ/L BUN 15 (9-20) mg/dL Creatinine 0.76 (0.66-1.25) mg/dL Estimated GFR > 60.0 ML/MIN Glucose 395 H (74-106) mg/dL Lactic Acid 1.0 (0.4-2.0) Calcium 8.0 L (8.4-10.2) mg/dL Total Bilirubin 0.90 (0.2-1.3) mg/dL AST 20 (17-59) U/L ALT 21 (0-50) U/L Alkaline Phosphatase 71 (38-126) U/L Serum Total Protein 6.2 L (6.3-8.2) g/dL Albumin 3.6 (3.5-5.0) g/dL Influenza Type A Ag NEGATIVE (NEGATIVE) Influenza Type B Ag NEGATIVE (NEGATIVE) RSV (PCR) NEGATIVE (Negative) SARS-CoV-2 (PCR) NEGATIVE (NEGATIVE) 01/14/23 01/14/23 Range/Units 07:17 07:17 WBC 6.4 (4.0-10.5) x10^3/uL RBC 4.58 (4.1-5.6) x10^6/uL Hgb 13.4 (12.5-18.0) g/dL Hct 38.9 L (42-50) % MCV 84.9 (78-100) fL MCH 29.3 (26-32) pg MCHC 34.4 (32-36) g/dL RDW 14.0 (11.5-14.0) % Plt Count 157 (150-450) x10^3/uL MPV 9.5 (7.5-11.0) fL Gran % 71.8 H (36.0-66.0) % Immature Gran % (Auto) 0.2 (0.00-0.4) % Nucleat RBC Rel Count 0.0 (0.00-0.1) % Eos # (Auto) 0.05 (0-0.5) x10^3/uL Immature Gran # (Auto) 0.01 (0.00-0.03) x10^3u/L Absolute Lymphs (auto) 1.19 (1.0-4.6) x10^3/uL Absolute Monos (auto) 0.53 (0.0-1.3) x10^3/uL Absolute Nucleated RBC 0.00 (0.00-0.01) x10^3u/L Lymphocytes % 18.7 L (24.0-44.0) % Monocytes % 8.3 (0.0-12.0) % Eosinophils % 0.8 (0.00-5.0) % Basophils % 0.2 (0.0-0.4) % Absolute Granulocytes 4.57 (1.4-6.9) x10^3/uL Basophils # 0.01 (0-0.4) x10^3/uL Sodium (137-145) mmol/L Potassium (3.5-5.1) mmol/L Chloride (98-107) mmol/L Carbon Dioxide (22-30) mmol/L Anion Gap (5-15) MEQ/L BUN (9-20) mg/dL Creatinine (0.66-1.25) mg/dL Estimated GFR ML/MIN Glucose (74-106) mg/dL Lactic Acid 2.3 H (0.4-2.0) Calcium (8.4-10.2) mg/dL Total Bilirubin (0.2-1.3) mg/dL AST (17-59) U/L ALT (0-50) U/L Alkaline Phosphatase (38-126) U/L Serum Total Protein (6.3-8.2) g/dL Albumin (3.5-5.0) g/dL Influenza Type A Ag (NEGATIVE) Influenza Type B Ag (NEGATIVE) RSV (PCR) (Negative) SARS-CoV-2 (PCR) (NEGATIVE) - Progress Progress Note: 01/14/23 14:11 Nursing note and vital signs reviewed All labs reviewed and shared w pt 01/14/23 14:12 1L NS bolus/1gm IV Vancomycin Obs admit per Dr. Tyler Admitting orders entered Discussed with : Mendel Will see patient in: hospital (observation) Counseled pt/family regarding: lab results, diagnosis - Departure Departure Disposition: Observation Clinical Impression: Cellulitis, Cellulitis of leg, right Condition: Stable Critical Care Time: No
[2023-01-14] MEDS ORDERED: VANCOMYCIN 1 GRAM/200 ML BAG 1 GM/200 ML PIGGYBACK IV SCH ×2 (07:30→08:45)
[2023-01-14] MEDS ORDERED: VANCOMYCIN 1 GRAM/200 ML BAG 1 GM/200 ML PIGGYBACK IV ONE (07:38)
[2023-01-14 07:50] LABS: Absolute Neutrophil Ct (ANC) 4.57 x10^3/uL (1.4-6.9); BASOPHIL % 0.2 % (0.0-0.4); Basophil (Absolute #) 0.01 x10^3/uL (0-0.4); Eosinophil % 0.8 % (0.00-5.0); Eosinophil (Absolute #) 0.05 x10^3/uL (0-0.5); Hematocrit 38.9 % (42-50); Hemoglobin 13.4 g/dL (12.5-18.0); IMMATURE GRAN # 0.01 x10^3u/L (0.00-0.03); IMMATURE GRAN % 0.2 % (0.00-0.4); Lymphocyte (Absolute #) 1.19 x10^3/uL (1.0-4.6); Lymphocytes % 18.7 % (24.0-44.0); Mean Cell Volume 84.9 fL (78-100); Mean Corpuscular Hemoglobin 29.3 pg (26-32); Mean Corpuscular Hgb Concent. 34.4 g/dL (32-36); Mean Platelet Volume 9.5 fL (7.5-11.0); Monocyte (Absolute #) 0.53 x10^3/uL (0.0-1.3); Monocytes % 8.3 % (0.0-12.0); Neutrophil % 71.8 % (36.0-66.0); Platelet Count 157 x10^3/uL (150-450); Red Blood Count 4.58 x10^6/uL (4.1-5.6); White Blood Count 6.4 x10^3/uL (4.0-10.5)
[2023-01-14] MEDS ORDERED: Sodium Chloride 0.9% 1000 ML 1,000 ML IV STA (07:52)
[2023-01-14 08:14] LABS: ALBUMIN 3.6 g/dL (3.5-5.0); ALKALINE PHOSPHATASE 71 U/L (38-126); ANION GAP 14.4 MEQ/L (5-15); BLOOD UREA NITROGEN 15 mg/dL (9-20); CHLORIDE 99 mmol/L (98-107); Carbon Dioxide 25 mmol/L (22-30); Creatinine 1 0.76 mg/dL (0.66-1.25); EST GLOMERULAR FILTRATION RATE > 60.0 ML/MIN; Glucose 395 mg/dL (74-106); Potassium 3.9 mmol/L (3.5-5.1); SGOT/AST 20 U/L (17-59); SGPT/ALT 21 U/L (0-50); SODIUM 134 mmol/L (137-145); Total Protein 6.2 g/dL (6.3-8.2)
[2023-01-14] MEDS ORDERED: Sodium Chloride 0.9% 1000 ML 1,000 ML ONE (08:28)
[2023-01-14] MEDS ORDERED: Hydromorphone 1 mg/ml Injection IV PRN (08:42)
[2023-01-14] MEDS ORDERED: Zofran 4 MG/2 ML VIAL IV PRN (08:42)
[2023-01-14] MEDS: Sodium Chloride 0.9% 1000 ML 1,000 ML IV SCH ×2 (09:42→21:14)
[2023-01-14] MEDS: HUMALOG SQ PRN ×4 (09:44→21:39)
[2023-01-14 09:46] LABS: INFLUENZA A NEGATIVE (NEGATIVE); INFLUENZA B NEGATIVE (NEGATIVE); RESPIRATORY SYNCTIAL VIRUS NEGATIVE (Negative); SARS-CoV-2 Xpert Express NEGATIVE (NEGATIVE)
[2023-01-14] MEDS ORDERED: MEDICATION INTERVENTION MC SCH (12:30)
[2023-01-14] MEDS ORDERED: NON-FORMULARY ITEM (Semaglutide [Ozempic] 0.25 MG/0.2 ML Pen.Injctr) SQ SCH (12:30)
[2023-01-14] MEDS: VANCOMYCIN 1.5 GRAM/300 ML BAG 1.5 GM/300 ML PIGGYBACK IV SCH ×2 (16:10→21:14)
[2023-01-14] MEDS: Glucophage 500 MG PO SCH (16:12)
[2023-01-15 05:18] LABS: Absolute Neutrophil Ct (ANC) 2.46 x10^3/uL (1.4-6.9); BASOPHIL % 0.4 % (0.0-0.4); Basophil (Absolute #) 0.02 x10^3/uL (0-0.4); Eosinophil % 3.3 % (0.00-5.0); Eosinophil (Absolute #) 0.15 x10^3/uL (0-0.5); Hematocrit 38.9 % (42-50); Hemoglobin 12.9 g/dL (12.5-18.0); IMMATURE GRAN # 0.01 x10^3u/L (0.00-0.03); IMMATURE GRAN % 0.2 % (0.00-0.4); Lymphocyte (Absolute #) 1.63 x10^3/uL (1.0-4.6); Lymphocytes % 35.4 % (24.0-44.0); Mean Cell Volume 84.6 fL (78-100); Mean Corpuscular Hgb Concent. 33.2 g/dL (32-36); Mean Platelet Volume 9.5 fL (7.5-11.0); Monocyte (Absolute #) 0.33 x10^3/uL (0.0-1.3); Monocytes % 7.2 % (0.0-12.0); Neutrophil % 53.5 % (36.0-66.0); Platelet Count 146 x10^3/uL (150-450); Red Cell Distribution Width 13.9 % (11.5-14.0); White Blood Count 4.6 x10^3/uL (4.0-10.5)
[2023-01-15] MEDS: VANCOMYCIN 1.5 GRAM/300 ML BAG 1.5 GM/300 ML PIGGYBACK IV SCH (05:19)
[2023-01-15] MEDS: Sodium Chloride 0.9% 1000 ML 1,000 ML IV SCH ×2 (05:19→21:12)
[2023-01-15 06:11] LABS: ALBUMIN 3.3 g/dL (3.5-5.0); ALKALINE PHOSPHATASE 55 U/L (38-126); ANION GAP 12.9 MEQ/L (5-15); BLOOD UREA NITROGEN 10 mg/dL (9-20); CHLORIDE 106 mmol/L (98-107); Carbon Dioxide 25 mmol/L (22-30); Creatinine 1 0.73 mg/dL (0.66-1.25); EST GLOMERULAR FILTRATION RATE > 60.0 ML/MIN; Glucose 175 mg/dL (74-106); Potassium 4.3 mmol/L (3.5-5.1); SGOT/AST 16 U/L (17-59); SGPT/ALT 18 U/L (0-50); SODIUM 139 mmol/L (137-145); Total Protein 5.9 g/dL (6.3-8.2)
[2023-01-15] MEDS: Glucophage 500 MG PO SCH ×2 (07:51→16:37)
[2023-01-15] MEDS: CEFAZOLIN 2 GM-D5W BAG** 2 GM/50 ML ML IV SCH ×2 (13:47→21:12)
[2023-01-15] MEDS: HUMALOG SQ PRN ×2 (16:37→21:11)
[2023-01-16 04:51] LABS: Absolute Neutrophil Ct (ANC) 2.02 x10^3/uL (1.4-6.9); BASOPHIL % 0.5 % (0.0-0.4); Basophil (Absolute #) 0.02 x10^3/uL (0-0.4); Eosinophil % 3.6 % (0.00-5.0); Eosinophil (Absolute #) 0.15 x10^3/uL (0-0.5); Hematocrit 36.4 % (42-50); IMMATURE GRAN # 0.03 x10^3u/L (0.00-0.03); IMMATURE GRAN % 0.7 % (0.00-0.4); Lymphocyte (Absolute #) 1.71 x10^3/uL (1.0-4.6); Lymphocytes % 41.1 % (24.0-44.0); Mean Cell Volume 84.5 fL (78-100); Mean Corpuscular Hemoglobin 27.8 pg (26-32); Mean Platelet Volume 9.5 fL (7.5-11.0); Monocyte (Absolute #) 0.23 x10^3/uL (0.0-1.3); Monocytes % 5.5 % (0.0-12.0); Neutrophil % 48.6 % (36.0-66.0); Platelet Count 147 x10^3/uL (150-450); Red Blood Count 4.31 x10^6/uL (4.1-5.6); Red Cell Distribution Width 13.4 % (11.5-14.0); White Blood Count 4.2 x10^3/uL (4.0-10.5)
[2023-01-16 05:16] LABS: ALBUMIN 3.2 g/dL (3.5-5.0); ALKALINE PHOSPHATASE 61 U/L (38-126); ANION GAP 11.3 MEQ/L (5-15); BLOOD UREA NITROGEN 10 mg/dL (9-20); CHLORIDE 106 mmol/L (98-107); Calcium 7.9 mg/dL (8.4-10.2); Carbon Dioxide 25 mmol/L (22-30); Creatinine 1 0.64 mg/dL (0.66-1.25); EST GLOMERULAR FILTRATION RATE > 60.0 ML/MIN; Glucose 154 mg/dL (74-106); Potassium 3.8 mmol/L (3.5-5.1); SGOT/AST 19 U/L (17-59); SGPT/ALT 20 U/L (0-50); SODIUM 138 mmol/L (137-145); Total Protein 5.8 g/dL (6.3-8.2)
[2023-01-16] MEDS: Sodium Chloride 0.9% 1000 ML 1,000 ML IV SCH (05:48)
[2023-01-16] MEDS: CEFAZOLIN 2 GM-D5W BAG** 2 GM/50 ML ML IV SCH (05:49)
[2023-01-16 07:08] VITALS: O2SAT 97
[2023-01-16] MEDS: Glucophage 500 MG PO SCH (07:22)
[2023-01-16 11:15] VITALS: BP 130/79; PULSE 69
--- NOTE | 2023-01-16 12:17 | XRAY ---
Indication: Right lower Shimada pain and swelling. Two-dimensional sonogram and color Doppler imaging of the major venous vessels of the right leg performed. Comparison: None No thrombus seen in the examined deep venous vessels of the right leg including greater saphenous vein. Veins demonstrate normal compressibility. Venous waveforms are normal with and without augmentation. Impression: Right leg negative for DVT.
--- NOTE | 2023-02-04 21:08 | PCM.SSS ---
History of Present Illness - Chief Complaint Chief Complaint: cellulitis Date: 01/16/23 History of Present Illness: is a 52 year old male presented to ED c/o r lower leg pain that he noticed yesterday when going to work. pt reports hx diabetes and pain in lower R leg is 8/10 now. noted redness and rash to entire R lower leg. pt states he has felt feverish but was not able to check temp at home. afebrile on arrival. also reports some nausea and vomiting r/t pain in leg. pt reports he was here about 6 months ago for these same sx and was dx with cellulitis. - Review of Systems Constitutional: No Fever, No Chills Eyes: No Symptoms Ears, Nose, & Throat: No Symptoms Respiratory: No Cough, No Short Of Breath Cardiac: No Chest Pain, No Edema, No Syncope Abdominal/Gastrointestinal: No Abdominal Pain, No Nausea, No Vomiting, No Diarrhea Genitourinary Symptoms: No Dysuria Musculoskeletal: No Back Pain, No Neck Pain Skin: Cellulitis, No Rash Neurological: No Dizziness, No Focal Weakness, No Sensory Changes Psychological: No Symptoms Endocrine: No Symptoms Hematologic/Lymphatic: No Symptoms Immunological/Allergic: No Symptoms Medications & Allergies Home Medications: Home Medication List Metformin HCl 500 mg [Glucophage 500 MG] 500 mg PO BID 08/01/20 [History Confirmed 01/14/23] Semaglutide [Ozempic] 0.25 mg SQ WEEKLY 01/14/23 [History Confirmed 01/14/23] Cephalexin Mh 500 mg [Keflex 500 mg] 500 mg PO QID #40 cap 01/16/23 [Rx] Allergies/Adverse Reactions: Allergies Allergy/AdvReac Type Severity Reaction Status Date / Time No Known Drug Allergies Allergy Verified 01/14/23 06:39 - Past Medical History Past Medical History: Yes Neurological History: No Pertinent History ENT History: No Pertinent History Cardiac History: No Pertinent History Respiratory History: No Pertinent History Endocrine Medical History: Diabetes Type II Musculoskelatal History: No Pertinent History GI Medical History: No Pertinent History History: No Pertinent History Pyscho-Social History: No Pertinent History Male Reproductive Disorders: No Pertinent History - Past Surgical History Past Surgical History: Yes Neuro Surgical History: No Pertinent History Cardiac History: No Pertinent History Respiratory Surgery: No Pertinent History GI Surgical History: No Pertinent History Genitourinary Surgical Hx: No Pertinent History Musculskeletal Surgical Hx: Orthopedic Surgery Male Surgical History: No Pertinent History Other Surgical History: left ankle - Social History Smoking Status: Former smoker How long have you smoked: years Exposure to second hand smoke: No Alcohol: Rarely Drug Use: none Significant Family History: no pertinent family hx - Physical Exam General Appearance: no apparent distress, alert, obese Neurologic Exam: alert, cooperative, normal mood/affect, nml cerebellar function, nml station & gait, sensation nml, No motor deficits Eye Exam: PERRL/EOMI, eyes nml inspection Ears, Nose, Throat Exam: normal ENT inspection, pharynx normal, moist mucous membranes Neck Exam: normal inspection, non-tender, supple, full range of motion Respiratory Exam: normal breath sounds, lungs clear, No respiratory distress Cardiovascular Exam: regular rate/rhythm, normal heart sounds, normal peripheral pulses Gastrointestinal/Abdomen Exam: soft, normal bowel sounds, No tenderness, No mass Back Exam: normal inspection, normal range of motion, No CVA tenderness, No v ertebral tenderness Extremity Exam: normal range of motion, pelvis stable Skin Exam: warm, dry, other (redness to rle), No rash Lymphatic Exam: No adenopathy Results - Labs Lab/Micro Results: Microbiology 01/14/23 07:47 Blood Culture Gram Stain - Final Blood Not Reportable Blood Culture - Final NO GROWTH 01/14/23 07:31 Blood Culture Gram Stain - Final Blood Not Reportable Blood Culture - Final NO GROWTH Assessment/Plan (1) Cellulitis of leg, right Status: Acute Assessment & Plan: begin iv antibiotic Code(s): L03.115 - CELLULITIS OF RIGHT LOWER LIMB Hospital Summary - Hospital Course Hospital Course: Pt. rapidly improved with redness and pain, pt. was ready for discharge the following day with continued po antibiotics. - Vitals & Intake/Output Vital Signs: Vital Signs Temperature 96.6 F 01/16/23 11:14 Pulse Rate 69 01/16/23 11:14 Respiratory Rate 16 01/16/23 11:14 Blood Pressure 130/79 01/16/23 11:14 O2 Sat by Pulse Oximetry 97 01/16/23 11:14 - Lab Result Diagrams: 01/16/23 04:51 01/16/23 04:51 Micro Results-Entire Visit: Microbiology 01/14/23 07:47 Blood Culture Gram Stain - Final Blood Not Reportable Blood Culture - Final NO GROWTH 01/14/23 07:31 Blood Culture Gram Stain - Final Blood Not Reportable Blood Culture - Final NO GROWTH - Procedures and Test Procedures and Tests throughout Hospitalization: Therapy Orders & Screens 01/14/23 10:42 OT Screen per Nursing Assess ONCE Comment: Protocol Order Physician Instructions: Greater than 3 points order OT Admission Screening Reason For Exam: Triggered on Admission Diagnosis: cellulitis Open Wound/Cellutlitis/Pressure Ulcers: Yes Acute Fx/ORIF/Change in wt bearing status: No Severe MUSCULOSKELETAL pain: No ADL Dysfunction: No Acute CVA w/Hemiparesis/Hemiplegia: No Decreased Functional Mobility/Strength: No Sprain/Strain: No Acute Post-op Mobility Dysfunction: No Total Points: 5 PT Screen per Nursing Assess ONCE Comment: Protocol Order Physician Instructions: Greater than 3 points order PT Admission Screenin Reason For Exam: Triggered on Admission Diagnosis: cellulitis Open Wound/Cellutlitis/Pressure Ulcers: Yes Acute Fx/ORIF/Change in wt bearing status: No Severe MUSCULOSKELETAL pain: No ADL Dysfunction: No Acute CVA w/Hemiparesis/Hemiplegia: No Decreased Functional Mobility/Strength: No Sprain/Strain: No Acute Post-op Mobility Dysfunction: No Total Points: 5 - Discharge Discharge Date: 01/16/23 Disposition: Home, Self-Care Condition: Stable Prescriptions: New Cephalexin Mh 500 mg [Keflex 500 mg] 500 mg PO QID #40 cap Continue Metformin HCl 500 mg [Glucophage 500 MG] 500 mg PO BID Semaglutide [Ozempic] 0.25 mg SQ WEEKLY Instructions: Guide to Eating When You Have Diabetes, Cellulitis (Skin Infection), Adult (DC) Follow up with: MALACHI TAPIA MD [Primary Care Provider] - 01/23/23 9:45 am ()
== END 2023-01-16 12:46 | disposition home or self-care (01) ==
LOC: ED 06:27 → MED SURG 10:10
PROVIDERS: ADMIT Family Medicine; ATTEND Family Medicine
DX: L03.115 Cellulitis of right lower limb (principal); E11.9 Type 2 diabetes mellitus without complications; Z79.899 Other long term (current) drug therapy; Z20.828 Contact with and (suspected) exposure to other viral communicable diseases
CPT/HCPCS: 0241U; 36000; 36415; 80053; 82947; 83036; 83605; 83880; 85025; 87040; 93971; 96365; 96372; 96374; 99285; G0378; J0690; J1170; J1817; A9270-GY; J3370

== ENCOUNTER 2023-05-19 18:01 | Observation (INO) | payer OTHER ==
[2023-05-19] MEDS ORDERED: VANCOMYCIN 1 GRAM/200 ML BAG 1 GM/200 ML PIGGYBACK IV ONE ×2 (19:38→20:42)
[2023-05-19] MEDS ORDERED: PIPERACILLIN/TAZOBACTAM 3.375 GM in Sodium Chloride 100ML MINI-BAG PLUS 100 ML IV ONE (19:39)
[2023-05-19] MEDS ORDERED: PIPERACILLIN/TAZOBACTAM IV ONE (19:42)
[2023-05-19] MEDS ORDERED: Sodium Chloride 100ML MINI-BAG PLUS 100 ML IV ONE (19:42)
--- NOTE | 2023-05-19 19:45 | ERPHSYRPT ---
- History of Present Illness Time Seen by Provider: 05/19/23 19:40 Source: patient Exam Limitations: no limitations Patient Subjective Stated Complaint: C/O RLE pain with a rash. States he noticed it starting yesterday. Triage Nursing Assessment: Patient ambulated back to ER. He is alert and oriented. No SOB. RLE noted to have red, warm areas. Some swelling noted. Patient indicates this is the same as previous ER visits and indicates that it was cellulitis previously. Physician History: Patient is a 52-year-old male presents to our ED for evaluation of cellulitis to the right lower extremity. Patient has a history of diabetes. Patient states he has been experiencing recurrent cellulitis of the right lower extremity. Patient was discharged from our hospital approximately 5 days ago per patient. Patient states he was treated with intravenous antibiotics for the same cellulitis. Symptoms significantly improved he was discharged home. Patient states his cellulitis reoccurred. No systemic manifestations. No fever. No nausea no vomiting. No diarrhea. No rash. No trauma. No calf pain. Timing/Duration: yesterday Severity: moderate Modifying Factors: Improves With: nothing Associated Symptoms: denies symptoms Allergies/Adverse Reactions: No Known Drug Allergies Allergy (Verified 05/19/23 18:13) Home Medications: Semaglutide [Ozempic] 0.5 mg SQ WEEKLY 01/14/23 [History] Hx Tetanus, Diphtheria Vaccination/Date Given: No Hx Influenza Vaccination/Date Given: No Hx Pneumococcal Vaccination/Date Given: No Immunizations Up to Date: Yes Travel Risk - International Travel Have you traveled outside of the country in past 3 weeks: No - Coronavirus Screening Are you exhibiting any of the following symptoms?: No Close contact with a COVID-19 positive Pt in past 14-21 Days: No - Vaccine Status Have you recieved a Covid-19 vaccination: No - Review of Systems Constitutional: No Symptoms, No Fever, No Chills Eyes: No Symptoms Ears, Nose, & Throat: No Symptoms Respiratory: No Symptoms, No Cough, No Dyspnea Cardiac: No Symptoms, No Chest Pain, No Edema, No Syncope Abdominal/Gastrointestinal: No Symptoms, No Abdominal Pain, No Nausea, No Vomiting, No Diarrhea Genitourinary Symptoms: No Symptoms, No Dysuria Musculoskeletal: No Symptoms, No Back Pain, No Neck Pain Skin: No Symptoms, No Rash Neurological: No Symptoms, No Dizziness, No Focal Weakness, No Sensory Changes Psychological: No Symptoms Endocrine: No Symptoms Hematologic/Lymphatic: No Symptoms Immunological/Allergic: No Symptoms All Other Systems: Reviewed and Negative - Past Medical History Pertinent Past Medical History: Yes Neurological History: No Pertinent History ENT History: No Pertinent History Cardiac History: No Pertinent History Respiratory History: No Pertinent History Endocrine Medical History: Diabetes Type II Musculoskeletal History: No Pertinent History GI Medical History: No Pertinent History History: No Pertinent History Psycho-Social History: No Pertinent History Male Reproductive Disorders: No Pertinent History Other Medical History: RLE cellulitis - Past Surgical History Past Surgical History: Yes Neuro Surgical History: No Pertinent History Cardiac: No Pertinent History Respiratory: No Pertinent History Gastrointestinal: No Pertinent History Genitourinary: No Pertinent History Musculoskeletal: Orthopedic Surgery Male Surgical History: No Pertinent History Other Surgical History: left ankle, right shoulder - Social History Smoking Status: Former smoker How long have you smoked: years Exposure to second hand smoke: No Drug Use: none Patient Lives Alone: No Significant Family History: no pertinent family hx - Nursing Vital Signs Nursing Vital Signs: Initial Vital Signs Pulse Rate 109 H 05/19/23 18:12 Blood Pressure 161/101 05/19/23 18:12 O2 Sat by Pulse Oximetry 96 05/19/23 18:12 Pain Scale Pain Intensity 7 - Physical Exam General Appearance: no apparent distress, alert Eye Exam: PERRL/EOMI, eyes nml inspection Ears, Nose, Throat Exam: normal ENT inspection, moist mucous membranes Neck Exam: normal inspection, non-tender, supple, full range of motion Respiratory Exam: normal breath sounds, lungs clear, No respiratory distress Cardiovascular Exam: regular rate/rhythm, normal heart sounds, normal peripheral pulses Gastrointestinal/Abdomen Exam: soft, normal bowel sounds, No tenderness, No mass Back Exam: normal inspection, normal range of motion, No CVA tenderness, No vertebral tenderness Extremity Exam: normal inspection, normal range of motion, pelvis stable, other (There is an area of cellulitis at the anterolateral aspect of the right lower leg. No obvious lymphangitis. No inguinal lymphadenopathy the involved extremity is neurovascular intact distally. Compartments are soft. Cap refill less than 2 seconds.) Neurologic Exam: alert, oriented x 3, cooperative, normal mood/affect, nml cerebellar function, nml station & gait, sensation nml, No motor deficits Skin Exam: normal color, warm, dry, No rash Lymphatic Exam: No adenopathy SpO2 Interpretation: normal SpO2: 97 O2 Delivery: Room Air - Course Nursing assessment & vital signs reviewed: Yes Ordered Tests: Active Orders 24 hr Category Date Time Status Bedrest with BRP/BSC ROUTINE Activity 05/19/23 21:30 Active Library Clerk Talking Books STAT Care 05/19/23 19:37 Completed Code Status Order ROUTINE Care 05/19/23 21:30 Active IV Care Q6H Care 05/19/23 21:30 Active IV Insertion STAT Care 05/19/23 19:36 Completed Neuro Checks Q4H Care 05/19/23 21:[address] in Observation ROUTINE Care 05/19/23 21:30 Active Pulse Oximetry (ED) STAT Care 05/19/23 19:36 Completed Telemetry q6h Care 05/19/23 21:30 Active Consistent Carbohydrate Diet 2000 Calorie Diet 05/20/23 Breakfast Active BLOOD CULTURE Stat Lab 05/19/23 20:20 Received CBC W DIFF AM.LAB Lab 05/20/23 04:07 Completed CBC W DIFF Stat Lab 05/19/23 20:10 Completed CMP AM.LAB Lab 05/20/23 04:07 Completed CMP Stat Lab 05/19/23 20:10 Completed Lactic Acid Stat Lab 05/19/23 19:55 Completed UA W/RFX UR CULTURE Stat Lab 05/19/23 19:37 Ordered Pulse Oximetry .spot check RT 05/19/23 21:30 Completed Medication Summary Generic Name Dose Route Start Last Admin Trade Name Freq PRN Reason Stop Dose Admin Acetaminophen 650 mg 05/19/23 21:30 Acetaminophen 325 Mg Tablet PO 06/18/23 21:29 Q4H PRN PRN PAIN AND/OR FEVER Enoxaparin Sodium 40 mg 05/20/23 10:00 Enoxaparin Sodium 40 Mg/0.4 Ml Syringe SQ 06/19/23 09:59 DAILY AZUL Piperacillin Sod/Tazobactam 100 mls @ 200 mls/hr 05/20/23 00:00 05/20/23 05:24 Sod 3.375 gm/ Sodium Chloride IV 05/23/23 00:00 200 mls/hr Q6HT AZUL Administration Insulin Human Lispro 0 unit 05/20/23 07:30 Insulin Lispro 1 Unit SQ 06/19/23 07:29 AC AZUL Morphine Sulfate 2 mg 05/19/23 21:30 Morphine Sulfate 2 Mg/Ml Inj IV 05/24/23 21:29 Q4H PRN PRN PAIN Ondansetron HCl 4 mg 05/19/23 21:30 Ondansetron Hcl 4 Mg/2 Ml Vial IV 06/18/23 21:29 Q6H PRN PRN NAUSEA/VOMITING Discontinued Medications Generic Name Dose Route Start Last Admin Trade Name Freq PRN Reason Stop Dose Admin Vancomycin HCl 1 gm in 200 mls @ 125 mls/hr 05/19/23 19:38 05/19/23 20:45 Vancomycin 1 Gram/200 Ml Bag IV 05/19/23 21:13 125 ml/hr STAT ONE 125 mls/hr Administration Piperacillin Sod/Tazobactam 100 mls @ 200 mls/hr 05/19/23 19:39 05/19/23 19:54 Sod 3.375 gm/ Sodium Chloride IV 05/19/23 20:08 200 mls/hr STAT ONE Administration Sodium Chloride Confirm 05/19/23 19:42 Sodium Chloride 100ml Mini-Bag Plus Administered 05/19/23 19:43 Dose 100 mls @ ud IV .STK-MED ONE Vancomycin HCl Confirm 05/19/23 20:42 Vancomycin 1 Gram/200 Ml Bag Administered 05/19/23 20:43 Dose 1 gm in 200 mls @ ud IV .STK-MED ONE Sodium Chloride Confirm 05/20/23 00:19 Sodium Chloride 100ml Mini-Bag Plus Administered 05/20/23 00:20 Dose 100 mls @ ud IV .STK-MED ONE Sodium Chloride Confirm 05/20/23 05:13 Sodium Chloride 100ml Mini-Bag Plus Administered 05/20/23 05:14 Dose 100 mls @ ud IV .STK-MED ONE Piperacillin Sod/Tazobactam Sod Confirm 05/19/23 19:42 Piperacillin/Tazobactam Sodium 3.375 Gm Vial Administered 05/19/23 19:43 Dose 3.375 gm IV .STK-MED ONE Piperacillin Sod/Tazobactam Sod Confirm 05/20/23 00:18 Piperacillin/Tazobactam Sodium 3.375 Gm Vial Administered 05/20/23 00:19 Dose 3.375 gm IV .STK-MED ONE Piperacillin Sod/Tazobactam Sod Confirm 05/20/23 05:12 Piperacillin/Tazobactam Sodium 3.375 Gm Vial Administered 05/20/23 05:13 Dose 3.375 gm IV .[facility] ONE Lab/Rad Data: Laboratory Result Diagrams 05/19/23 20:10 05/19/23 20:10 Laboratory Results 05/19/23 05/19/23 05/19/23 Range/Units 20:10 20:10 19:55 WBC 8.6 (4.0-10.5) x10^3/uL RBC 5.21 (4.1-5.6) x10^6/uL Hgb 14.3 (12.5-18.0) g/dL Hct 42.9 (42-50) % MCV 82.3 (78-100) fL MCH 27.4 (26-32) pg MCHC 33.3 (32-36) g/dL RDW 13.9 (11.5-14.0) % Plt Count 179 (150-450) x10^3/uL MPV 9.8 (7.5-11.0) fL Gran % 74.5 H (36.0-66.0) % Immature Gran % (Auto) 0.5 H (0.00-0.4) % Nucleat RBC Rel Count 0.0 (0.00-0.1) % Eos # (Auto) 0.07 (0-0.5) x10^3/uL Immature Gran # (Auto) 0.04 H (0.00-0.03) x10^3u/L Absolute Lymphs (auto) 1.38 (1.0-4.6) x10^3/uL Absolute Monos (auto) 0.68 (0.0-1.3) x10^3/uL Absolute Nucleated RBC 0.00 (0.00-0.01) x10^3u/L Lymphocytes % 16.1 L (24.0-44.0) % Monocytes % 8.0 (0.0-12.0) % Eosinophils % 0.8 (0.00-5.0) % Basophils % 0.1 (0.0-0.4) % Absolute Granulocytes 6.37 (1.4-6.9) x10^3/uL Basophils # 0.01 (0-0.4) x10^3/uL Sodium 136 L (137-145) mmol/L Potassium 4.5 (3.5-5.1) mmol/L Chloride 97 L (98-107) mmol/L Carbon Dioxide 30 (22-30) mmol/L Anion Gap 13.4 (5-15) MEQ/L BUN 15 (9-20) mg/dL Creatinine 0.79 (0.66-1.25) mg/dL Estimated GFR > 60.0 ML/MIN Glucose 280 H (74-106) mg/dL Lactic Acid 1.5 (0.4-2.0) Calcium 8.7 (8.4-10.2) mg/dL Total Bilirubin 1.20 (0.2-1.3) mg/dL AST 23 (17-59) U/L ALT 20 (0-50) U/L Alkaline Phosphatase 76 (38-126) U/L Serum Total Protein 7.5 (6.3-8.2) g/dL Albumin 4.1 (3.5-5.0) g/dL - Progress Progress: improved Progress Note: Case discussed with Dr. Kurtz hospitalist at 7:[address] Harper accepts admission to observation. 05/19/23 19:44 Patient is a 52-year-old male presents to our ED for evaluation of cellulitis ri ght lower extremity. Physical exam reveals a cellulitis no lymphangitis. Work- up includes CBC CMP blood cultures lactic acid and urinalysis. Patient received vancomycin and Zosyn antibiotics. Patient will require hospitalization for further evaluation and treatment. Patient agrees to admission at [facility] for further evaluation and treatment. Portions of this note were created with voice recognition technology. There may be grammatical, spelling, punctuation or sound alike errors Complexity of problem addressed is moderate acute complicated No critical care time Complexity of data reviewed and analyzed is extensive test ordered test reviewed and analyzed. Clinical correlation between history physical exam and laboratory findings. Work-up/plan of care discussed with accepting hospitalist, Dr. Kurtz Risk of complication and or risk of morbidity/mortality of patient management is high. Patient will require hospitalization for intravenous antibiotics treat cellulitis of the lower extremity Plan of care established for shared decision making. Vital stable. Patient voices no other complaints or concerns at this time. Portions of this note were created with voice recognition technology. There may be grammatical, spelling, punctuation or sound alike errors 05/20/23 07:22 Counseled pt/family regarding: lab results, diagnosis - Departure Departure Disposition: Observation Clinical Impression: Cellulitis Condition: Stable Critical Care Time: No
[2023-05-19 20:27] LABS: Absolute Neutrophil Ct (ANC) 6.37 x10^3/uL (1.4-6.9); BASOPHIL % 0.1 % (0.0-0.4); Basophil (Absolute #) 0.01 x10^3/uL (0-0.4); Eosinophil % 0.8 % (0.00-5.0); Eosinophil (Absolute #) 0.07 x10^3/uL (0-0.5); Hematocrit 42.9 % (42-50); Hemoglobin 14.3 g/dL (12.5-18.0); IMMATURE GRAN # 0.04 x10^3u/L (0.00-0.03); IMMATURE GRAN % 0.5 % (0.00-0.4); Lymphocyte (Absolute #) 1.38 x10^3/uL (1.0-4.6); Lymphocytes % 16.1 % (24.0-44.0); Mean Cell Volume 82.3 fL (78-100); Mean Corpuscular Hemoglobin 27.4 pg (26-32); Mean Corpuscular Hgb Concent. 33.3 g/dL (32-36); Mean Platelet Volume 9.8 fL (7.5-11.0); Monocyte (Absolute #) 0.68 x10^3/uL (0.0-1.3); Neutrophil % 74.5 % (36.0-66.0); Platelet Count 179 x10^3/uL (150-450); Red Blood Count 5.21 x10^6/uL (4.1-5.6); Red Cell Distribution Width 13.9 % (11.5-14.0); White Blood Count 8.6 x10^3/uL (4.0-10.5)
[2023-05-19 20:39] LABS: ALBUMIN 4.1 g/dL (3.5-5.0); ALKALINE PHOSPHATASE 76 U/L (38-126); ANION GAP 13.4 MEQ/L (5-15); BLOOD UREA NITROGEN 15 mg/dL (9-20); CHLORIDE 97 mmol/L (98-107); Calcium 8.7 mg/dL (8.4-10.2); Carbon Dioxide 30 mmol/L (22-30); Creatinine 1 0.79 mg/dL (0.66-1.25); EST GLOMERULAR FILTRATION RATE > 60.0 ML/MIN; Glucose 280 mg/dL (74-106); Potassium 4.5 mmol/L (3.5-5.1); SGOT/AST 23 U/L (17-59); SGPT/ALT 20 U/L (0-50); SODIUM 136 mmol/L (137-145); Total Protein 7.5 g/dL (6.3-8.2)
[2023-05-19] MEDS ORDERED: MORPHINE SULFATE 2 MG INJ IV PRN (21:30)
[2023-05-19] MEDS ORDERED: TYLENOL 325 MG PO PRN (21:30)
[2023-05-19] MEDS ORDERED: Zofran 4 MG/2 ML VIAL IV PRN (21:30)
--- NOTE | 2023-05-19 22:08 | PCM.HP ---
History of Present Illness - Chief Complaint Chief Complaint: Cellulitis History of Present Illness: 52 yo wm with hx of DM admitted with cellulitis. Pt has 3rd episode of cellulitis in same leg. Last time he was here approx 3 months ago and treated for 5 days. He states in last 24 hours RLE e rythema abruptly started. Notes some chills but no fevers. Seen in ED and started on broad coverage. - Review of Systems Constitutional: No Symptoms, Chills, No Fever Eyes: No Symptoms Ears, Nose, & Throat: No Symptoms, Throat Swelling Cardiac: No Symptoms Abdominal/Gastrointestinal: No Symptoms Genitourinary Symptoms: No Symptoms Musculoskeletal: No Symptoms Skin: Cellulitis Neurological: No Symptoms Psychological: No Symptoms Endocrine: No Symptoms Hematologic/Lymphatic: No Symptoms Immunological/Allergic: No Symptoms Medications & Allergies Home Medications: Home Medication List Semaglutide [Ozempic] 0.5 mg SQ WEEKLY 01/14/23 [History Confirmed 05/19/23] Allergies/Adverse Reactions: Allergies Allergy/AdvReac Type Severity Reaction Status Date / Time No Known Drug Allergies Allergy Verified 05/19/23 18:13 - Past Medical History Past Medical History: Yes Neurological History: No Pertinent History ENT History: No Pertinent History Cardiac History: No Pertinent History Respiratory History: No Pertinent History Endocrine Medical History: Diabetes Type II Musculoskelatal History: No Pertinent History GI Medical History: No Pertinent History History: No Pertinent History Pyscho-Social History: No Pertinent History Male Reproductive Disorders: No Pertinent History Comment: RLE cellulitis - Past Surgical History Past Surgical History: Yes Neuro Surgical History: No Pertinent History Cardiac History: No Pertinent History Respiratory Surgery: No Pertinent History GI Surgical History: No Pertinent History Genitourinary Surgical Hx: No Pertinent History Musculskeletal Surgical Hx: Orthopedic Surgery Male Surgical History: No Pertinent History Other Surgical History: left ankle, right shoulder - Social History Smoking Status: Former smoker How long have you smoked: years Exposure to second hand smoke: No Alcohol: Rarely Drug Use: none Significant Family History: no pertinent family hx - Physical Exam Vital Signs: Vital Signs - 24 hr Temp Pulse Resp BP BP Pulse Ox 05/19/23 21:32 98.2 F 100 H 141/81 93 L 05/19/23 20:30 103 H 10 L 120/83 96 05/19/23 20:00 102 H 19 115/73 96 05/19/23 19:59 96 05/19/23 19:53 97 05/19/23 19:30 98 H 14 131/89 97 05/19/23 19:00 108 H 16 132/92 96 05/19/23 18:14 98 F 110 H 19 161/101 96 05/19/23 18:12 109 H 161/101 96 General Appearance: no apparent distress Neurologic Exam: alert, oriented x 3 Eye Exam: PERRL/EOMI, eyes nml inspection Ears, Nose, Throat Exam: normal ENT inspection Neck Exam: normal inspection Respiratory Exam: normal breath sounds Cardiovascular Exam: regular rate/rhythm, normal heart sounds Gastrointestinal/Abdomen Exam: soft, normal bowel sounds, No tenderness Skin Exam: other (erythema on anterior aspect of RLE) Results - Labs Lab/Micro Results: Lab Results-Last 24 Hours 05/19/23 05/19/23 05/19/23 Range/Units 19:55 20:10 20:10 WBC 8.6 (4.0-10.5) x10^3/uL RBC 5.21 (4.1-5.6) x10^6/uL Hgb 14.3 (12.5-18.0) g/dL Hct 42.9 (42-50) % MCV 82.3 (78-100) fL MCH 27.4 (26-32) pg MCHC 33.3 (32-36) g/dL RDW 13.9 (11.5-14.0) % Plt Count 179 (150-450) x10^3/uL MPV 9.8 (7.5-11.0) fL Gran % 74.5 H (36.0-66.0) % Immature Gran % (Auto) 0.5 H (0.00-0.4) % Nucleat RBC Rel Count 0.0 (0.00-0.1) % Eos # (Auto) 0.07 (0-0.5) x10^3/uL Immature Gran # (Auto) 0.04 H (0.00-0.03) x10^3u/L Absolute Lymphs (auto) 1.38 (1.0-4.6) x10^3/uL Absolute Monos (auto) 0.68 (0.0-1.3) x10^3/uL Absolute Nucleated RBC 0.00 (0.00-0.01) x10^3u/L Lymphocytes % 16.1 L (24.0-44.0) % Monocytes % 8.0 (0.0-12.0) % Eosinophils % 0.8 (0.00-5.0) % Basophils % 0.1 (0.0-0.4) % Absolute Granulocytes 6.37 (1.4-6.9) x10^3/uL Basophils # 0.01 (0-0.4) x10^3/uL Sodium 136 L (137-145) mmol/L Potassium 4.5 (3.5-5.1) mmol/L Chloride 97 L (98-107) mmol/L Carbon Dioxide 30 (22-30) mmol/L Anion Gap 13.4 (5-15) MEQ/L BUN 15 (9-20) mg/dL Creatinine 0.79 (0.66-1.25) mg/dL Estimated GFR > 60.0 ML/MIN Glucose 280 H (74-106) mg/dL Lactic Acid 1.5 (0.4-2.0) Calcium 8.7 (8.4-10.2) mg/dL Total Bilirubin 1.20 (0.2-1.3) mg/dL AST 23 (17-59) U/L ALT 20 (0-50) U/L Alkaline Phosphatase 76 (38-126) U/L Serum Total Protein 7.5 (6.3-8.2) g/dL Albumin 4.1 (3.5-5.0) g/dL Assessment/Plan (1) Cellulitis of leg, right Current Visit: No Status: Acute Assessment & Plan: 1. Cellulitis: RLE. Recurrent. Unclear why continues to happen in same location aside from poorly controlled DM. Continue zosyn. Demarcate with marker-->if spreads will add vanc. 2. DM: Continue Ozempic + SS. 3. Hyperglycemia: SS. 4. Obesity: losing weight after ozempic 5. PX: Lovenox. Erlin Kurtz MD entire encounter done via telemedicine Code(s): L03.115 - CELLULITIS OF RIGHT LOWER LIMB Telemedicine Encounter - Telemedicine Encounter Telemedicine Encounter: The entirety of this encounter was performed via Telemedicine"
[2023-05-20] MEDS ORDERED: PIPERACILLIN/TAZOBACTAM IV ONE ×2 (00:18→05:12)
[2023-05-20] MEDS ORDERED: Sodium Chloride 100ML MINI-BAG PLUS 100 ML IV ONE ×2 (00:19→05:13)
[2023-05-20] MEDS: PIPERACILLIN/TAZOBACTAM 3.375 GM in Sodium Chloride 100ML MINI-BAG PLUS 100 ML IV SCH ×5 (00:27→23:20)
[2023-05-20 04:15] LABS: Absolute Neutrophil Ct (ANC) 5.04 x10^3/uL (1.4-6.9); BASOPHIL % 0.3 % (0.0-0.4); Basophil (Absolute #) 0.02 x10^3/uL (0-0.4); Eosinophil % 1.2 % (0.00-5.0); Eosinophil (Absolute #) 0.09 x10^3/uL (0-0.5); Hematocrit 40.4 % (42-50); Hemoglobin 13.6 g/dL (12.5-18.0); IMMATURE GRAN # 0.02 x10^3u/L (0.00-0.03); IMMATURE GRAN % 0.3 % (0.00-0.4); Lymphocyte (Absolute #) 1.87 x10^3/uL (1.0-4.6); Lymphocytes % 24.1 % (24.0-44.0); Mean Cell Volume 82.3 fL (78-100); Mean Corpuscular Hemoglobin 27.7 pg (26-32); Mean Corpuscular Hgb Concent. 33.7 g/dL (32-36); Mean Platelet Volume 9.5 fL (7.5-11.0); Monocyte (Absolute #) 0.73 x10^3/uL (0.0-1.3); Monocytes % 9.4 % (0.0-12.0); Neutrophil % 64.7 % (36.0-66.0); Platelet Count 145 x10^3/uL (150-450); Red Blood Count 4.91 x10^6/uL (4.1-5.6); Red Cell Distribution Width 13.7 % (11.5-14.0); White Blood Count 7.8 x10^3/uL (4.0-10.5)
[2023-05-20 04:31] LABS: ALBUMIN 3.9 g/dL (3.5-5.0); ALKALINE PHOSPHATASE 71 U/L (38-126); ANION GAP 13.6 MEQ/L (5-15); BLOOD UREA NITROGEN 13 mg/dL (9-20); CHLORIDE 100 mmol/L (98-107); Calcium 8.4 mg/dL (8.4-10.2); Carbon Dioxide 25 mmol/L (22-30); Creatinine 1 0.72 mg/dL (0.66-1.25); EST GLOMERULAR FILTRATION RATE > 60.0 ML/MIN; Glucose 258 mg/dL (74-106); Potassium 4.1 mmol/L (3.5-5.1); SGOT/AST 22 U/L (17-59); SGPT/ALT 21 U/L (0-50); SODIUM 135 mmol/L (137-145); Total Protein 7.1 g/dL (6.3-8.2)
[2023-05-20] MEDS ORDERED: PHARMACY DOSING REQUIRED: VANCOMYCIN IV STA (08:19)
[2023-05-20] MEDS: HUMALOG SQ SCH ×4 (08:48→21:54)
[2023-05-20] MEDS: ENOXAPARIN SODIUM SQ SCH (08:49)
[2023-05-20] MEDS: VANCOMYCIN 1.25 GM/250 ML BAG 1.25 GM/250 ML PIGGYBACK IV SCH ×2 (09:11→16:58)
--- NOTE | 2023-05-20 12:53 | PCM.NOTE ---
Date and Time: 05/20/23 1251 Subjective Assessment: Feeling better, was having fevers and chills and nausea and vomiting prior to admission. No fevers since admission. Alex campo and karen. - Review of Systems Eyes: No Symptoms Ears, Nose, & Throat: No Symptoms Respiratory: No Symptoms Cardiac: No Symptoms Abdominal/Gastrointestinal: Nausea, Vomiting Musculoskeletal: No Symptoms Skin: No Symptoms Objective Exam Neurologic Exam: alert, oriented x 3, cooperative Skin Exam: normal color, warm, embolic lesions Eye Exam: PERRL, EOMI Neck Exam: normal inspection Respiratory Exam: normal breath sounds Cardiovascular Exam: regular rate/rhythm, normal heart sounds Gastrointestinal/Abdomen Exam: soft, normal bowel sounds Extremity Exam: normal inspection OBJECTIVE DATA Vital Signs: Vital Signs - 24 hr Temp Pulse Resp BP BP Pulse Ox 05/20/23 11:37 96.0 F 88 18 125/80 95 05/20/23 07:26 97 05/20/23 07:17 97.5 F 84 17 120/74 96 05/20/23 04:00 97.1 F 80 126/77 96 05/20/23 00:00 97.8 F 90 120/76 94 L 05/19/23 21:32 98.2 F 100 H 141/81 93 L 05/19/23 20:30 103 H 10 L 120/83 96 05/19/23 20:00 102 H 19 115/73 96 05/19/23 19:59 96 05/19/23 19:30 98 H 14 131/89 97 05/19/23 19:00 108 H 16 132/92 96 05/19/23 18:14 98 F 110 H 19 161/101 96 05/19/23 18:12 109 H 161/101 96 Pain Assessment - Last Documented Pain Intensity 4 Intake and Output: Intake & Output 05/18/23 05/19/23 05/20/23 05/21/23 11:59 11:59 11:59 11:59 Intake Total 240 240 Balance 240 240 Weight 103.5 kg Lab Results: Lab Results-Last 24 Hours 05/19/23 05/19/23 05/19/23 Range/Units 19:55 20:10 20:10 WBC 8.6 (4.0-10.5) x10^3/uL RBC 5.21 (4.1-5.6) x10^6/uL Hgb 14.3 (12.5-18.0) g/dL Hct 42.9 (42-50) % MCV 82.3 (78-100) fL MCH 27.4 (26-32) pg MCHC 33.3 (32-36) g/dL RDW 13.9 (11.5-14.0) % Plt Count 179 (150-450) x10^3/uL MPV 9.8 (7.5-11.0) fL Gran % 74.5 H (36.0-66.0) % Immature Gran % (Auto) 0.5 H (0.00-0.4) % Nucleat RBC Rel Count 0.0 (0.00-0.1) % Eos # (Auto) 0.07 (0-0.5) x10^3/uL Immature Gran # (Auto) 0.04 H (0.00-0.03) x10^3u/L Absolute Lymphs (auto) 1.38 (1.0-4.6) x10^3/uL Absolute Monos (auto) 0.68 (0.0-1.3) x10^3/uL Absolute Nucleated RBC 0.00 (0.00-0.01) x10^3u/L Lymphocytes % 16.1 L (24.0-44.0) % Monocytes % 8.0 (0.0-12.0) % Eosinophils % 0.8 (0.00-5.0) % Basophils % 0.1 (0.0-0.4) % Absolute Granulocytes 6.37 (1.4-6.9) x10^3/uL Basophils # 0.01 (0-0.4) x10^3/uL Sodium 136 L (137-145) mmol/L Potassium 4.5 (3.5-5.1) mmol/L Chloride 97 L (98-107) mmol/L Carbon Dioxide 30 (22-30) mmol/L Anion Gap 13.4 (5-15) MEQ/L BUN 15 (9-20) mg/dL Creatinine 0.79 (0.66-1.25) mg/dL Estimated GFR > 60.0 ML/MIN Glucose 280 H (74-106) mg/dL POC Glucometer (74 to 106) mg/dL Lactic Acid 1.5 (0.4-2.0) Calcium 8.7 (8.4-10.2) mg/dL Total Bilirubin 1.20 (0.2-1.3) mg/dL AST 23 (17-59) U/L ALT 20 (0-50) U/L Alkaline Phosphatase 76 (38-126) U/L Serum Total Protein 7.5 (6.3-8.2) g/dL Albumin 4.1 (3.5-5.0) g/dL 05/20/23 05/20/23 05/20/23 Range/Units 04:07 04:07 07:03 WBC 7.8 (4.0-10.5) x10^3/uL RBC 4.91 (4.1-5.6) x10^6/uL Hgb 13.6 (12.5-18.0) g/dL Hct 40.4 L (42-50) % MCV 82.3 (78-100) fL MCH 27.7 (26-32) pg MCHC 33.7 (32-36) g/dL RDW 13.7 (11.5-14.0) % Plt Count 145 L (150-450) x10^3/uL MPV 9.5 (7.5-11.0) fL Gran % 64.7 (36.0-66.0) % Immature Gran % (Auto) 0.3 (0.00-0.4) % Nucleat RBC Rel Count 0.0 (0.00-0.1) % Eos # (Auto) 0.09 (0-0.5) x10^3/uL Immature Gran # (Auto) 0.02 (0.00-0.03) x10^3u/L Absolute Lymphs (auto) 1.87 (1.0-4.6) x10^3/uL Absolute Monos (auto) 0.73 (0.0-1.3) x10^3/uL Absolute Nucleated RBC 0.00 (0.00-0.01) x10^3u/L Lymphocytes % 24.1 (24.0-44.0) % Monocytes % 9.4 (0.0-12.0) % Eosinophils % 1.2 (0.00-5.0) % Basophils % 0.3 (0.0-0.4) % Absolute Granulocytes 5.04 (1.4-6.9) x10^3/uL Basophils # 0.02 (0-0.4) x10^3/uL Sodium 135 L (137-145) mmol/L Potassium 4.1 (3.5-5.1) mmol/L Chloride 100 (98-107) mmol/L Carbon Dioxide 25 (22-30) mmol/L Anion Gap 13.6 (5-15) MEQ/L BUN 13 (9-20) mg/dL Creatinine 0.72 (0.66-1.25) mg/dL Estimated GFR > 60.0 ML/MIN Glucose 258 H (74-106) mg/dL POC Glucometer 261 H (74 to 106) mg/dL Lactic Acid (0.4-2.0) Calcium 8.4 (8.4-10.2) mg/dL Total Bilirubin 1.70 H (0.2-1.3) mg/dL AST 22 (17-59) U/L ALT 21 (0-50) U/L Alkaline Phosphatase 71 (38-126) U/L Serum Total Protein 7.1 (6.3-8.2) g/dL Albumin 3.9 (3.5-5.0) g/dL 05/20/23 Range/Units 11:28 WBC (4.0-10.5) x10^3/uL RBC (4.1-5.6) x10^6/uL Hgb (12.5-18.0) g/dL Hct (42-50) % MCV (78-100) fL MCH (26-32) pg MCHC (32-36) g/dL RDW (11.5-14.0) % Plt Count (150-450) x10^3/uL MPV (7.5-11.0) fL Gran % (36.0-66.0) % Immature Gran % (Auto) (0.00-0.4) % Nucleat RBC Rel Count (0.00-0.1) % Eos # (Auto) (0-0.5) x10^3/uL Immature Gran # (Auto) (0.00-0.03) x10^3u/L Absolute Lymphs (auto) (1.0-4.6) x10^3/uL Absolute Monos (auto) (0.0-1.3) x10^3/uL Absolute Nucleated RBC (0.00-0.01) x10^3u/L Lymphocytes % (24.0-44.0) % Monocytes % (0.0-12.0) % Eosinophils % (0.00-5.0) % Basophils % (0.0-0.4) % Absolute Granulocytes (1.4-6.9) x10^3/uL Basophils # (0-0.4) x10^3/uL Sodium (137-145) mmol/L Potassium (3.5-5.1) mmol/L Chloride (98-107) mmol/L Carbon Dioxide (22-30) mmol/L Anion Gap (5-15) MEQ/L BUN (9-20) mg/dL Creatinine (0.66-1.25) mg/dL Estimated GFR ML/MIN Glucose (74-106) mg/dL POC Glucometer 257 H (74 to 106) mg/dL Lactic Acid (0.4-2.0) Calcium (8.4-10.2) mg/dL Total Bilirubin (0.2-1.3) mg/dL AST (17-59) U/L ALT (0-50) U/L Alkaline Phosphatase (38-126) U/L Serum Total Protein (6.3-8.2) g/dL Albumin (3.5-5.0) g/dL Assessment/Plan (1) Cellulitis Current Visit: Yes Status: Acute Assessment & Plan: (1) Cellulitis of leg, right Current Visit: No Status: Acute Assessment & Plan: 1. Cellulitis: RLE. Recurrent. Unclear why continues to happen in same location aside from poorly controlled DM. Continue zosyn. Demarcate with marker-->if spreads will add vanc. 2. DM: Continue Ozempic + SS. 3. Hyperglycemia: SS. 4. Obesity: losing weight after ozempic 5. PX: Lovenox. Erlin Kurtz MD entire encounter done via telemedicine Code(s): L03.115 - CELLULITIS OF RIGHT LOWER LIMB Telemedicine Encounter - Telemedicine Encounter Telemedicine Encounter: The entirety of this encounter was performed via Telemedicine" Code(s): L03.90 - CELLULITIS, UNSPECIFIED Telemedicine Encounter - Telemedicine Encounter Telemedicine Encounter: The entirety of this encounter was performed via Telemedicine"
[2023-05-21] MEDS: VANCOMYCIN 1.25 GM/250 ML BAG 1.25 GM/250 ML PIGGYBACK IV SCH ×3 (01:32→16:27)
[2023-05-21 03:00] LABS: ADD URINE CULTURE? NO (NO); Appearance Clear (Clear); Bacteria None Seen /HPF (None Seen); Bilirubin Negative (Negative); Blood Negative (Negative); Epithelial Cells None Seen /HPF (None Seen); Glucose, Urine >=1000 mg/dL (Negative); Hyaline Casts NONE SEEN /LPF (0-2); Ketones Trace (Negative); Leukocyte Esterase Negative (Negative); Nitrite Negative (Negative); Ph 5.5 (4.6-8.0); Protein,Urine Dip Negative (Negative); RBC 0-2 /HPF (0-5); Specific Gravity 1.025 (1.005-1.030)
[2023-05-21] MEDS: PIPERACILLIN/TAZOBACTAM 3.375 GM in Sodium Chloride 100ML MINI-BAG PLUS 100 ML IV SCH ×4 (05:39→23:17)
[2023-05-21] MEDS: ENOXAPARIN SODIUM SQ SCH (08:55)
[2023-05-21] MEDS: HUMALOG SQ SCH ×4 (08:56→21:01)
[2023-05-21] MEDS ORDERED: TROUGH DRUG LEVELS IJ ONE (09:30)
[2023-05-21 09:45] LABS: Absolute Neutrophil Ct (ANC) 4.18 x10^3/uL (1.4-6.9); BASOPHIL % 0.5 % (0.0-0.4); Basophil (Absolute #) 0.03 x10^3/uL (0-0.4); Eosinophil (Absolute #) 0.12 x10^3/uL (0-0.5); Hemoglobin 13.7 g/dL (12.5-18.0); IMMATURE GRAN # 0.02 x10^3u/L (0.00-0.03); IMMATURE GRAN % 0.3 % (0.00-0.4); Lymphocyte (Absolute #) 1.34 x10^3/uL (1.0-4.6); Lymphocytes % 22.1 % (24.0-44.0); Mean Corpuscular Hemoglobin 27.7 pg (26-32); Mean Corpuscular Hgb Concent. 33.4 g/dL (32-36); Mean Platelet Volume 9.5 fL (7.5-11.0); Monocyte (Absolute #) 0.37 x10^3/uL (0.0-1.3); Monocytes % 6.1 % (0.0-12.0); Platelet Count 160 x10^3/uL (150-450); Red Blood Count 4.94 x10^6/uL (4.1-5.6); Red Cell Distribution Width 13.5 % (11.5-14.0); White Blood Count 6.1 x10^3/uL (4.0-10.5)
[2023-05-21 10:20] LABS: ALBUMIN 3.8 g/dL (3.5-5.0); ALKALINE PHOSPHATASE 68 U/L (38-126); ANION GAP 12.1 MEQ/L (5-15); BLOOD UREA NITROGEN 13 mg/dL (9-20); CHLORIDE 102 mmol/L (98-107); Calcium 8.6 mg/dL (8.4-10.2); Carbon Dioxide 26 mmol/L (22-30); Creatinine 1 0.69 mg/dL (0.66-1.25); EST GLOMERULAR FILTRATION RATE > 60.0 ML/MIN; Glucose 257 mg/dL (74-106); Potassium 4.3 mmol/L (3.5-5.1); SGOT/AST 21 U/L (17-59); SGPT/ALT 24 U/L (0-50); SODIUM 136 mmol/L (137-145); Total Protein 7.1 g/dL (6.3-8.2)
[2023-05-22] MEDS: VANCOMYCIN 1.25 GM/250 ML BAG 1.25 GM/250 ML PIGGYBACK IV SCH ×2 (00:06→05:06)
[2023-05-22] MEDS: PIPERACILLIN/TAZOBACTAM 3.375 GM in Sodium Chloride 100ML MINI-BAG PLUS 100 ML IV SCH (05:03)
[2023-05-22 06:33] LABS: Absolute Neutrophil Ct (ANC) 2.73 x10^3/uL (1.4-6.9); BASOPHIL % 0.2 % (0.0-0.4); Basophil (Absolute #) 0.01 x10^3/uL (0-0.4); Eosinophil % 2.8 % (0.00-5.0); Eosinophil (Absolute #) 0.14 x10^3/uL (0-0.5); Hematocrit 39.5 % (42-50); IMMATURE GRAN # 0.04 x10^3u/L (0.00-0.03); IMMATURE GRAN % 0.8 % (0.00-0.4); Lymphocyte (Absolute #) 1.78 x10^3/uL (1.0-4.6); Lymphocytes % 35.7 % (24.0-44.0); Mean Corpuscular Hemoglobin 27.7 pg (26-32); Mean Corpuscular Hgb Concent. 32.9 g/dL (32-36); Mean Platelet Volume 9.3 fL (7.5-11.0); Monocyte (Absolute #) 0.29 x10^3/uL (0.0-1.3); Monocytes % 5.8 % (0.0-12.0); Neutrophil % 54.7 % (36.0-66.0); Platelet Count 164 x10^3/uL (150-450); Red Cell Distribution Width 13.3 % (11.5-14.0)
--- NOTE | 2023-05-22 06:36 | PCM.NOTE ---
Date and Time: 05/22/23633 Subjective Assessment: Doing better, on antibiotics, but still with some pain that is controlled with acetaminophen, will consider discharge tomorrow. - Review of Systems Eyes: No Symptoms Ears, Nose, & Throat: No Symptoms Respiratory: No Symptoms Abdominal/Gastrointestinal: No Symptoms Objective Exam Neurologic Exam: alert, oriented x 3, cooperative Skin Exam: rash Respiratory Exam: normal breath sounds Cardiovascular Exam: regular rate/rhythm Gastrointestinal/Abdomen Exam: soft, normal bowel sounds OBJECTIVE DATA Vital Signs: Vital Signs - 24 hr Temp Pulse Resp BP Pulse Ox 05/22/23 04:31 97.6 F 68 17 130/78 97 05/22/23 00:00 96.9 F 64 17 121/78 96 05/21/23 20:00 97.6 F 86 17 115/73 95 05/21/23 16:00 97.0 F 71 16 134/86 97 05/21/23 12:00 97.0 F 84 14 124/83 95 05/21/23 07:39 97.0 F 79 16 141/83 96 Pain Assessment - Last Documented Pain Intensity 4 Pain Scale Used 0-10 Pain Scale Intake and Output: Intake & Output 05/19/23 05/20/23 05/21/23 05/22/23 11:59 11:59 11:59 11:59 Intake Total 240 920 920 Output Total 900 Balance 240 20 920 Weight 103.5 kg Lab Results: Lab Results-Last 24 Hours 05/21/23 05/21/23 05/21/23 Range/Units 07:32 09:40 09:40 WBC 6.1 (4.0-10.5) x10^3/uL RBC 4.94 (4.1-5.6) x10^6/uL Hgb 13.7 (12.5-18.0) g/dL Hct 41.0 L (42-50) % MCV 83.0 (78-100) fL MCH 27.7 (26-32) pg MCHC 33.4 (32-36) g/dL RDW 13.5 (11.5-14.0) % Plt Count 160 (150-450) x10^3/uL MPV 9.5 (7.5-11.0) fL Gran % 69.0 H (36.0-66.0) % Immature Gran % (Auto) 0.3 (0.00-0.4) % Nucleat RBC Rel Count 0.0 (0.00-0.1) % Eos # (Auto) 0.12 (0-0.5) x10^3/uL Immature Gran # (Auto) 0.02 (0.00-0.03) x10^3u/L Absolute Lymphs (auto) 1.34 (1.0-4.6) x10^3/uL Absolute Monos (auto) 0.37 (0.0-1.3) x10^3/uL Absolute Nucleated RBC 0.00 (0.00-0.01) x10^3u/L Lymphocytes % 22.1 L (24.0-44.0) % Monocytes % 6.1 (0.0-12.0) % Eosinophils % 2.0 (0.00-5.0) % Basophils % 0.5 (0.0-0.4) % Absolute Granulocytes 4.18 (1.4-6.9) x10^3/uL Basophils # 0.03 (0-0.4) x10^3/uL Sodium (137-145) mmol/L Potassium (3.5-5.1) mmol/L Chloride (98-107) mmol/L Carbon Dioxide (22-30) mmol/L Anion Gap (5-15) MEQ/L BUN (9-20) mg/dL Creatinine (0.66-1.25) mg/dL Estimated GFR ML/MIN Glucose (74-106) mg/dL POC Glucometer 231 H (74 to 106) mg/dL Calcium (8.4-10.2) mg/dL Total Bilirubin (0.2-1.3) mg/dL AST (17-59) U/L ALT (0-50) U/L Alkaline Phosphatase (38-126) U/L Serum Total Protein (6.3-8.2) g/dL Albumin (3.5-5.0) g/dL Vancomycin Trough 8.92 L (10-20) ug/mL 05/21/23 05/21/23 05/21/23 Range/Units 09:40 12:06 16:30 WBC (4.0-10.5) x10^3/uL RBC (4.1-5.6) x10^6/uL Hgb (12.5-18.0) g/dL Hct (42-50) % MCV (78-100) fL MCH (26-32) pg MCHC (32-36) g/dL RDW (11.5-14.0) % Plt Count (150-450) x10^3/uL MPV (7.5-11.0) fL Gran % (36.0-66.0) % Immature Gran % (Auto) (0.00-0.4) % Nucleat RBC Rel Count (0.00-0.1) % Eos # (Auto) (0-0.5) x10^3/uL Immature Gran # (Auto) (0.00-0.03) x10^3u/L Absolute Lymphs (auto) (1.0-4.6) x10^3/uL Absolute Monos (auto) (0.0-1.3) x10^3/uL Absolute Nucleated RBC (0.00-0.01) x10^3u/L Lymphocytes % (24.0-44.0) % Monocytes % (0.0-12.0) % Eosinophils % (0.00-5.0) % Basophils % (0.0-0.4) % Absolute Granulocytes (1.4-6.9) x10^3/uL Basophils # (0-0.4) x10^3/uL Sodium 136 L (137-145) mmol/L Potassium 4.3 (3.5-5.1) mmol/L Chloride 102 (98-107) mmol/L Carbon Dioxide 26 (22-30) mmol/L Anion Gap 12.1 (5-15) MEQ/L BUN 13 (9-20) mg/dL Creatinine 0.69 (0.66-1.25) mg/dL Estimated GFR > 60.0 ML/MIN Glucose 257 H (74-106) mg/dL POC Glucometer 216 H 264 H (74 to 106) mg/dL Calcium 8.6 (8.4-10.2) mg/dL Total Bilirubin 1.20 (0.2-1.3) mg/dL AST 21 (17-59) U/L ALT 24 (0-50) U/L Alkaline Phosphatase 68 (38-126) U/L Serum Total Protein 7.1 (6.3-8.2) g/dL Albumin 3.8 (3.5-5.0) g/dL Vancomycin Trough (10-20) ug/mL 05/21/23 Range/Units 20:45 WBC (4.0-10.5) x10^3/uL RBC (4.1-5.6) x10^6/uL Hgb (12.5-18.0) g/dL Hct (42-50) % MCV (78-100) fL MCH (26-32) pg MCHC (32-36) g/dL RDW (11.5-14.0) % Plt Count (150-450) x10^3/uL MPV (7.5-11.0) fL Gran % (36.0-66.0) % Immature Gran % (Auto) (0.00-0.4) % Nucleat RBC Rel Count (0.00-0.1) % Eos # (Auto) (0-0.5) x10^3/uL Immature Gran # (Auto) (0.00-0.03) x10^3u/L Absolute Lymphs (auto) (1.0-4.6) x10^3/uL Absolute Monos (auto) (0.0-1.3) x10^3/uL Absolute Nucleated RBC (0.00-0.01) x10^3u/L Lymphocytes % (24.0-44.0) % Monocytes % (0.0-12.0) % Eosinophils % (0.00-5.0) % Basophils % (0.0-0.4) % Absolute Granulocytes (1.4-6.9) x10^3/uL Basophils # (0-0.4) x10^3/uL Sodium (137-145) mmol/L Potassium (3.5-5.1) mmol/L Chloride (98-107) mmol/L Carbon Dioxide (22-30) mmol/L Anion Gap (5-15) MEQ/L BUN (9-20) mg/dL Creatinine (0.66-1.25) mg/dL Estimated GFR ML/MIN Glucose (74-106) mg/dL POC Glucometer 290 H (74 to 106) mg/dL Calcium (8.4-10.2) mg/dL Total Bilirubin (0.2-1.3) mg/dL AST (17-59) U/L ALT (0-50) U/L Alkaline Phosphatase (38-126) U/L Serum Total Protein (6.3-8.2) g/dL Albumin (3.5-5.0) g/dL Vancomycin Trough (10-20) ug/mL Assessment/Plan (1) Cellulitis Current Visit: Yes Status: Acute Assessment & Plan: Assessment/Plan (1) Cellulitis Current Visit: Yes Status: Acute Assessment & Plan: (1) Cellulitis of leg, right Current Visit: No Status: Acute Assessment & Plan: 1. Cellulitis: RLE. Recurrent. Unclear why continues to happen in same location aside from poorly controlled DM. Continue zosyn. Demarcate with marker-->if spreads will add vanc. 2. DM: Continue Ozempic + SS. 3. Hyperglycemia: SS. 4. Obesity: losing weight after ozempic 5. PX: Lovenox. Erlin Kurtz MD entire encounter done via telemedicine Code(s): L03.115 - CELLULITIS OF RIGHT LOWER LIMB Code(s): L03.90 - CELLULITIS, UNSPECIFIED Telemedicine Encounter - Telemedicine Encounter Telemedicine Encounter: The entirety of this encounter was performed via Telemedicine"
[2023-05-22 07:02] LABS: ALBUMIN 3.5 g/dL (3.5-5.0); ALKALINE PHOSPHATASE 78 U/L (38-126); ANION GAP 12.9 MEQ/L (5-15); BLOOD UREA NITROGEN 10 mg/dL (9-20); CHLORIDE 104 mmol/L (98-107); Calcium 8.2 mg/dL (8.4-10.2); Carbon Dioxide 25 mmol/L (22-30); Creatinine 1 0.65 mg/dL (0.66-1.25); EST GLOMERULAR FILTRATION RATE > 60.0 ML/MIN; Glucose 217 mg/dL (74-106); Potassium 4.1 mmol/L (3.5-5.1); SGOT/AST 21 U/L (17-59); SGPT/ALT 25 U/L (0-50); SODIUM 137 mmol/L (137-145); Total Protein 6.7 g/dL (6.3-8.2)
[2023-05-22 07:16] VITALS: BP 130/83; PULSE 69; O2SAT 100
[2023-05-22] MEDS: HUMALOG SQ SCH (08:02)
[2023-05-22] MEDS: ENOXAPARIN SODIUM SQ SCH (10:17)
--- NOTE | 2023-05-22 10:40 | PCM.DS ---
Discharge Summary Date of Admission: 05/19/23 21:07 Date of Discharge: 05/22/2023 Admitting Physician: ANDREEA ABRAHAM MD Primary Care Provider: MALACHI TAPIA Allergies Allergies No Known Drug Allergies Allergy (Verified 05/19/23 18:13) Hospital Summary - Hospital Course Hospital Course: 52-year-old man with history of diabetes who presented with recurrent right leg cellulitis. Last seen 3 months ago, but patient states he has had recurrent cellulitis in that leg over time. He had a Doppler ultrasound that was negative for DVT. Presented with acute onset of 1 day of right leg erythema with pain, but no fevers, chills, or nausea. He was placed on empiric vancomycin and Zosyn, with rapid improvement in the erythema and pain. He was tolerating ambulation without difficulty, and by day of discharge, had almost complete resolution of the erythema. He has already received 3 days of IV antibiotics. Will discharge on 7 days of Keflex (for strep) and Bactrim (for MRSA).Follow-up with PCP Dr. Tapia in 1 to 2 weeks. - Vitals & Intake/Output Vital Signs: Vital Signs Temperature 96.7 F 05/22/23 07:15 Pulse Rate 69 05/22/23 07:15 Respiratory Rate 16 05/22/23 07:15 Blood Pressure 130/83 05/22/23 07:15 O2 Sat by Pulse Oximetry 100 05/22/23 07:15 Intake & Output: Intake & Output 05/19/23 05/20/23 05/21/23 05/22/23 11:59 11:59 11:59 11:59 Intake Total 952 194 8297 Output Total 900 Balance 190 42 7828 Weight 103.5 kg - Lab Result Diagrams: 05/22/23 06:25 05/22/23 06:25 Lab Results-Last 24 Hrs: Lab Results-Last 24 Hours 05/21/23 05/21/23 05/21/23 Range/Units 09:40 09:40 12:06 WBC (4.0-10.5) x10^3/uL RBC (4.1-5.6) x10^6/uL Hgb (12.5-18.0) g/dL Hct (42-50) % MCV (78-100) fL MCH (26-32) pg MCHC (32-36) g/dL RDW (11.5-14.0) % Plt Count (150-450) x10^3/uL MPV (7.5-11.0) fL Gran % (36.0-66.0) % Immature Gran % (Auto) (0.00-0.4) % Nucleat RBC Rel Count (0.00-0.1) % Eos # (Auto) (0-0.5) x10^3/uL Immature Gran # (Auto) (0.00-0.03) x10^3u/L Absolute Lymphs (auto) (1.0-4.6) x10^3/uL Absolute Monos (auto) (0.0-1.3) x10^3/uL Absolute Nucleated RBC (0.00-0.01) x10^3u/L Lymphocytes % (24.0-44.0) % Monocytes % (0.0-12.0) % Eosinophils % (0.00-5.0) % Basophils % (0.0-0.4) % Absolute Granulocytes (1.4-6.9) x10^3/uL Basophils # (0-0.4) x10^3/uL Sodium 136 L (137-145) mmol/L Potassium 4.3 (3.5-5.1) mmol/L Chloride 102 (98-107) mmol/L Carbon Dioxide 26 (22-30) mmol/L Anion Gap 12.1 (5-15) MEQ/L BUN 13 (9-20) mg/dL Creatinine 0.69 (0.66-1.25) mg/dL Estimated GFR > 60.0 ML/MIN Glucose 257 H (74-106) mg/dL POC Glucometer 216 H (74 to 106) mg/dL Calcium 8.6 (8.4-10.2) mg/dL Total Bilirubin 1.20 (0.2-1.3) mg/dL AST 21 (17-59) U/L ALT 24 (0-50) U/L Alkaline Phosphatase 68 (38-126) U/L Serum Total Protein 7.1 (6.3-8.2) g/dL Albumin 3.8 (3.5-5.0) g/dL Vancomycin Trough 8.92 L (10-20) ug/mL 05/21/23 05/21/23 05/22/23 Range/Units 16:30 20:45 06:25 WBC 5.0 (4.0-10.5) x10^3/uL RBC 4.70 (4.1-5.6) x10^6/uL Hgb 13.0 (12.5-18.0) g/dL Hct 39.5 L (42-50) % MCV 84.0 (78-100) fL MCH 27.7 (26-32) pg MCHC 32.9 (32-36) g/dL RDW 13.3 (11.5-14.0) % Plt Count 164 (150-450) x10^3/uL MPV 9.3 (7.5-11.0) fL Gran % 54.7 (36.0-66.0) % Immature Gran % (Auto) 0.8 H (0.00-0.4) % Nucleat RBC Rel Count 0.0 (0.00-0.1) % Eos # (Auto) 0.14 (0-0.5) x10^3/uL Immature Gran # (Auto) 0.04 H (0.00-0.03) x10^3u/L Absolute Lymphs (auto) 1.78 (1.0-4.6) x10^3/uL Absolute Monos (auto) 0.29 (0.0-1.3) x10^3/uL Absolute Nucleated RBC 0.00 (0.00-0.01) x10^3u/L Lymphocytes % 35.7 (24.0-44.0) % Monocytes % 5.8 (0.0-12.0) % Eosinophils % 2.8 (0.00-5.0) % Basophils % 0.2 (0.0-0.4) % Absolute Granulocytes 2.73 (1.4-6.9) x10^3/uL Basophils # 0.01 (0-0.4) x10^3/uL Sodium (137-145) mmol/L Potassium (3.5-5.1) mmol/L Chloride (98-107) mmol/L Carbon Dioxide (22-30) mmol/L Anion Gap (5-15) MEQ/L BUN (9-20) mg/dL Creatinine (0.66-1.25) mg/dL Estimated GFR ML/MIN Glucose (74-106) mg/dL POC Glucometer 264 H 290 H (74 to 106) mg/dL Calcium (8.4-10.2) mg/dL Total Bilirubin (0.2-1.3) mg/dL AST (17-59) U/L ALT (0-50) U/L Alkaline Phosphatase (38-126) U/L Serum Total Protein (6.3-8.2) g/dL Albumin (3.5-5.0) g/dL Vancomycin Trough (10-20) ug/mL 05/22/23 05/22/23 Range/Units 06:25 06:52 WBC (4.0-10.5) x10^3/uL RBC (4.1-5.6) x10^6/uL Hgb (12.5-18.0) g/dL Hct (42-50) % MCV (78-100) fL MCH (26-32) pg MCHC (32-36) g/dL RDW (11.5-14.0) % Plt Count (150-450) x10^3/uL MPV (7.5-11.0) fL Gran % (36.0-66.0) % Immature Gran % (Auto) (0.00-0.4) % Nucleat RBC Rel Count (0.00-0.1) % Eos # (Auto) (0-0.5) x10^3/uL Immature Gran # (Auto) (0.00-0.03) x10^3u/L Absolute Lymphs (auto) (1.0-4.6) x10^3/uL Absolute Monos (auto) (0.0-1.3) x10^3/uL Absolute Nucleated RBC (0.00-0.01) x10^3u/L Lymphocytes % (24.0-44.0) % Monocytes % (0.0-12.0) % Eosinophils % (0.00-5.0) % Basophils % (0.0-0.4) % Absolute Granulocytes (1.4-6.9) x10^3/uL Basophils # (0-0.4) x10^3/uL Sodium 137 (137-145) mmol/L Potassium 4.1 (3.5-5.1) mmol/L Chloride 104 (98-107) mmol/L Carbon Dioxide 25 (22-30) mmol/L Anion Gap 12.9 (5-15) MEQ/L BUN 10 (9-20) mg/dL Creatinine 0.65 L (0.66-1.25) mg/dL Estimated GFR > 60.0 ML/MIN Glucose 217 H (74-106) mg/dL POC Glucometer 215 H (74 to 106) mg/dL Calcium 8.2 L (8.4-10.2) mg/dL Total Bilirubin 0.90 (0.2-1.3) mg/dL AST 21 (17-59) U/L ALT 25 (0-50) U/L Alkaline Phosphatase 78 (38-126) U/L Serum Total Protein 6.7 (6.3-8.2) g/dL Albumin 3.5 (3.5-5.0) g/dL Vancomycin Trough (10-20) ug/mL Micro Results-Entire Visit: Microbiology 05/19/23 20:20 Blood Culture - Preliminary Blood 05/19/23 20:10 Blood Culture - Preliminary Blood Accuchecks Date 05/22/23 Date 05/21/23 Date 05/21/23 Date 05/21/23 Time 07:15 Time 16:42 Time 12:29 Blood cultures 05/19: No growth to date. Discharge Exam General Appearance: no apparent distress Neurologic Exam: alert, oriented x 3 Eye Exam: eyes nml inspection Respiratory Exam: normal breath sounds, lungs clear, No respiratory distress Cardiovascular Exam: regular rate/rhythm, No murmur, No edema Gastrointestinal/Abdomen Exam: soft, No tenderness, No distention Extremity Exam: other (Area of prior cellulitis demarcated with pen. No visible erythema. No edema. No discharge.) Final Diagnosis/Problem List - Final Discharge Diagnosis/Problem (1) Cellulitis of leg, right Current Visit: No Status: Acute Code(s): L03.115 - CELLULITIS OF RIGHT LOWER LIMB Telemedicine Encounter - Telemedicine Encounter Telemedicine Encounter: The entirety of this encounter was performed via Telemedicine" - Discharge Discharge Date: 05/22/23 Disposition: Home, Self-Care Condition: Stable Prescriptions: New Smz/Tmp Ds Tablet [Bactrim Ds Tablet] 1 tab PO Q12H #14 tablet Cephalexin Mh 500 mg [Keflex 500 mg] 500 mg PO Q6H #28 cap Continue Semaglutide [Ozempic] 0.5 mg SQ WEEKLY Instructions: Cellulitis and erysipelas (skin infections) Additional Instructions: Complete taking your antibiotics for a total of 7 days, to end on 05/29. Follow up with: MALACHI TAPIA MD [Primary Care Provider] - 05/28/23 11:00 am
[2023-05-22] MEDS ORDERED: TROUGH DRUG LEVELS IJ ONE (11:30)
== END 2023-05-22 11:18 | disposition home or self-care (01) ==
LOC: ED 18:01 → MED SURG 21:07
PROVIDERS: ADMIT Internal Medicine Critical Care Medicine; ATTEND Family Medicine
DX: L03.115 Cellulitis of right lower limb (principal); E11.9 Type 2 diabetes mellitus without complications; E11.65 Type 2 diabetes mellitus with hyperglycemia; E66.9 Obesity, unspecified; Z79.899 Other long term (current) drug therapy; Z20.828 Contact with and (suspected) exposure to other viral communicable diseases
CPT/HCPCS: 36000; 36415; 80053; 80202; 81001; 82947; 83605; 85025; 87040; 93041; 93268; 94760; 96365; 96368; 99285; G0378; Q3014; J1650; J1817; A9270-GY; J3370

== ENCOUNTER 2023-12-14 19:31 | Emergency (ER) | payer OTHER ==
[2023-12-14 20:49] VITALS: RESP 16; TEMP 98.1; O2SAT 98
--- NOTE | 2023-12-14 20:56 | ERPHSYRPT ---
- History of Present Illness Time Seen by Provider: 12/14/23 20:52 Source: patient Exam Limitations: no limitations Patient Subjective Stated Complaint: pt states he has been having pain in h is rt shoulder for approx 4 months. pain is worse with movement and with palpation Triage Nursing Assessment: pt alert and oriented, answers questions approp. pt ambulates into room iwth steady gait noted. respirations nonlabored, skin warm and dry. rt arm in sling. radial pulse and cap refill wnl. pt states movement in shoulder is decreased and has pain with movment and palpation. Physician History: pt states he has been having pain in h is rt shoulder for approx 4 months. pain is worse with movement and with palpation pt states movement in shoulder is decreased and has pain with movment and palpation. [facility] Where shoulder x ray was done. Occurred: other (4-5 months) Quality: constant, throbbing Severity of Pain-Max: moderate Severity of Pain-Current: moderate Extremities Pain Location: shoulder: right Modifying Factors: Improves With: nothing Associated Symptoms: none Allergies/Adverse Reactions: No Known Drug Allergies Allergy (Verified 12/14/23 21:31) Hx Tetanus, Diphtheria Vaccination/Date Given: Yes Hx Influenza Vaccination/Date Given: No Hx Pneumococcal Vaccination/Date Given: No Immunizations Up to Date: Yes Travel Risk - International Travel Have you traveled outside of the country in past 3 weeks: No - Coronavirus Screening Are you exhibiting any of the following symptoms?: No Close contact with a COVID-19 positive Pt in past 14-21 Days: No - Vaccine Status Have you recieved a Covid-19 vaccination: No - Review of Systems Constitutional: No Fever, No Chills Eyes: No Symptoms Ears, Nose, & Throat: No Symptoms Respiratory: No Cough, No Dyspnea Cardiac: No Chest Pain, No Edema, No Syncope Abdominal/Gastrointestinal: No Abdominal Pain, No Nausea, No Vomiting, No Diarrhea Genitourinary Symptoms: No Dysuria Musculoskeletal: Joint Pain (right shoulder), No Back Pain, No Neck Pain Skin: No Rash Neurological: No Dizziness, No Focal Weakness, No Sensory Changes Psychological: No Symptoms Endocrine: No Symptoms All Other Systems: Reviewed and Negative - Past Medical History Pertinent Past Medical History: Yes Neurological History: No Pertinent History ENT History: No Pertinent History Cardiac History: No Pertinent History Respiratory History: No Pertinent History Endocrine Medical History: Diabetes Type II Musculoskeletal History: No Pertinent History GI Medical History: No Pertinent History History: No Pertinent History Psycho-Social History: No Pertinent History Male Reproductive Disorders: No Pertinent History Other Medical History: RLE cellulitis - Past Surgical History Past Surgical History: Yes Neuro Surgical History: No Pertinent History Cardiac: No Pertinent History Respiratory: No Pertinent History Gastrointestinal: Appendectomy Genitourinary: No Pertinent History Musculoskeletal: Orthopedic Surgery Male Surgical History: No Pertinent History Other Surgical History: left ankle, right shoulder with hardware, part of hardware removed - Social History Smoking Status: Former smoker How long have you smoked: years Exposure to second hand smoke: No Drug Use: none Patient Lives Alone: No Significant Family History: no pertinent family hx - Nursing Vital Signs Nursing Vital Signs: Initial Vital Signs Temperature 98.1 F 12/14/23 20:34 Pulse Rate 94 H 12/14/23 20:34 Respiratory Rate 16 12/14/23 20:34 Blood Pressure 160/107 12/14/23 20:34 O2 Sat by Pulse Oximetry 98 12/14/23 20:34 Pain Scale Pain Intensity 3 - Physical Exam General Appearance: alert Eyes, Ears, Nose, Throat Exam: moist mucous membranes Neck Exam: non-tender, supple Cardiovascular/Respiratory Exam: chest non-tender, normal breath sounds, regular rate/rhythm, no respiratory distress Abdominal Exam: non-tender, No guarding Back Exam: normal inspection, No vertebral tenderness Shoulder Exam: limited ROM (right shoulder), pain Neuro/Tendon Exam: normal sensation, normal motor functions Mental Status Exam: alert, oriented x 3, cooperative Skin Exam: normal color, warm, dry SpO2: 98 - Course Nursing assessment & vital signs reviewed: Yes Ordered Tests: Active Orders 24 hr Category Date Time Status SHOULDER Stat Exams 12/14/23 21:32 Ordered Medication Summary Discontinued Medications Generic Name Dose Route Start Last Admin Trade Name Freq PRN Reason Stop Dose Admin Ketorolac Tromethamine 60 mg 12/14/23 21:32 Ketorolac Tromethamine 30 Mg/Ml Inj IM 12/14/23 21:33 STAT ONE - Progress Progress: improved, pain not gone completely Counseled pt/family regarding: diagnosis, need for follow-up Medical Desision Making - Diagnostic Testing Diagnostic test were ordered, analyzed, and reviewed by me: No - Departure Departure Disposition: Home Clinical Impression: Chronic pain in right shoulder Condition: Stable Critical Care Time: No Referrals: WILLIE,MALACHI USAMA, MD [Primary Care Provider] - [id number] Instructions: Shoulder Tendinopathy (DC) Additional Instructions: Discharge/Care Plan CHERELLE CHENG was seen on 12/14/23 in the Emergency Room. The patient was counseled regarding Diagnosis,Lab results, Imaging studies, need for follow up and when to return to the Emergency Room. Prescriptions given: Discharge Note I have spoken with the patient and/or caregivers. I have explained the patient's condition, diagnosis and treatment plan based on the information available to me at this time. I have answered the patient's and/or caregiver's questions and addressed any concerns. The patient and/or caregivers have as good understanding of the patient's diagnosis, condition and treatment plan as can be expected at this point. The vital signs have been stable. The patient's condition is stable and appropriate for discharge from the emergency department. The patient will pursue further outpatient evaluation with the primary care physician or other designated or consulting physician as outlined in the discharge instructions. The patient and/or caregivers are agreeable to this plan of care and follow-up instructions have been explained in detail. The patient and/or caregivers have received these instruction. The patient/and or caregivers are aware that any significant change in condition or worsening of symptoms should prompt an immediate return to this or the closest emergency department or call 911. CHERELLE CHENG was seen on 12/14/23 n the Emergency Room. At that time you were treated for an emergent condition, during your visit Laboratory, Radiology and/or other procedures may have been ordered. It is very important that you follow-up with your Primary Care Physician MALACHI TAPIA within the next 24-48 hours to review your Emergency Room visit and the final results of testing that was ordered. Some test results such as Urine Cultures, Blood Cultures, and other cultures if ordered will not be finalized for 24-48 hours. If you do not have a Primary Care Provider please call the medical records department at [phone] ext [phone] to obtain a copy of your results or you may sign into our patient portal to obtain these results by visiting us @ [email or web address] and completing the following steps: 1. Click on the Patient Portal link 2. Click the Patient Self Enrollment Link to complete the enrollment form and entering your 3. Once the enrollment form is completed you will receive an email with a temporary ID and password at the email address you provided. 4. Next choose a user name and password. Your user name must be at least 4 characters long and your password must be at least 4 characters long. 5. Choose a security question from the list and provide your answer to the question. If you already have signed into the Health Portal you may access your Health Care Information 10/06 by the following steps: 1. Login to our website @ [email or web address] 2. Enter your original user name and password. FAQS The [facility] Health Portal is an online tool that contains your Lab Results, Radiology Reports, Visit History, Discharge Instructions and Health Summary Lab and Radiology Results will not be available for 72 hours on the portal. The Portal is a secure site, passwords are encryted and URLs are re-written so they cannot be copied and pasted. You and authorized family members are the only ones who can access your Portal. Also there is a timeout feature that protects your information if you leave the Portal page open. If you have technical difficulty please use the Contact Us link on the page this will allow you to submit any questions you have regarding the Portal or you may contact the Medical Record Department at [phone]. Prescriptions: Naproxen 375 mg [Naprosyn 375 mg] 375 mg PO Q8H #30 tablet
[2023-12-14] MEDS ORDERED: TORAdol 30 mg Injection IM ONE (21:32)
[2023-12-14] MEDS ORDERED: TORAdol 30 mg Injection ONE (21:59)
[2023-12-14 22:20] VITALS: BP 142/87; PULSE 82
== END 2023-12-14 22:18 | disposition home or self-care (01) ==
LOC: ED 19:31
DX: G89.29 Other chronic pain (principal); M25.511 Pain in right shoulder; E11.9 Type 2 diabetes mellitus without complications; Z28.310 Unvaccinated for COVID-19
CPT/HCPCS: 96372; 99282; J1885